=== PATIENT | male | born 1940 | race Caucasian/White ===

== ENCOUNTER 2020-02-10 10:17 | Outpatient (REF) | payer OTHER, SELFPAY ==
--- NOTE | 2020-02-10 | US_ITS ---
EXAMINATION: US THYROID CLINICAL INFORMATION: Nontoxic multinodular goiter. COMPARISON: Thyroid ultrasound 01/10/2018 and 12/07/2016. Ultrasound-guided thyroid biopsy 09/11/2014. TECHNIQUE: Linear transducer walter-scale and color Doppler examination with attention to the region of the thyroid. Technically difficult study secondary to body habitus. FINDINGS: SIZE: Measurements of the thyroid lobes and nodules are given in sagittal, anteroposterior and transverse dimensions respectively. Right Thyroid Lobe: 4.3 x 2.3 x 2.3 cm, volume 11.7 mL. Previously 4.5 x 1.8 x 2.0 cm, volume 8.5 mL. Parenchyma: The gland echotexture is heterogeneous. Thyroid vascularity is normal. Left Thyroid Lobe: 4.1 x 1.6 x 1.8 cm, volume 6.3 mL. Previously 3.9 x 1.5 x 1.7 cm, volume 5.2 mL. Parenchyma: The gland echotexture is heterogeneous. Thyroid vascularity is normal. Isthmus: 0.7 cm in maximum AP dimension. Previously 0.5 cm. RIGHT THYROID LOBE: There are 4 nodules seen. 1. Location: Upper pole. Size: 0.5 x 0.3 x 0.5 cm. Previous: 0.5 x 0.3 x 0.4 cm. Nodule characteristics: Hypoechoic, smoothly marginated with no intranodular flow, simple cysts. 2. Location: Mid pole. Size: 0.5 x 0.3 x 0.4 cm. Previous: 0.3 x 0.2 x 0.2 cm. Nodule characteristics: Hypoechoic, smoothly marginated with no intranodular flow, likely simple cyst. 3. Location: Mid pole. Size: 0.4 x 0.3 x 0.4 cm. Previous: 0.3 x 0.2 x 0.3 cm. Nodule characteristics: Hypoechoic, smoothly marginated with no intranodular flow, likely simple cyst. 4. Location: Lower pole. Size: 0.3 x 0.2 x 0.3 cm. Previous: Not seen, new. Nodule characteristics: Hypoechoic, smoothly marginated with no intranodular flow, likely simple cyst heterogenous, smoothly marginated with no intranodular flow. ISTHMUS: No nodules. LEFT THYROID LOBE: There are 2 nodules seen. 1. Location: Mid pole. Size: 0.8 x 0.7 x 0.9 cm. Previous: 0.9 x 0.7 x 0.6 cm. Nodule characteristics: Heterogeneous, smoothly marginated with no intranodular flow. 2. Location: Mid pole. Size: 0.5 x 0.5 x 0.6 cm. Previous: 0.4 x 0.3 x 0.4 cm. Nodule characteristics: Hypoechoic, smoothly marginated with no intranodular flow, likely complex cyst. NODES: No lymphadenopathy is seen in the tissue surrounding the thyroid gland. US/US thyroid IMPRESSION: Bilateral subcentimeter thyroid nodules, most of the right thyroid nodules are simple cyst. There is a complex cyst in the midpole left lobe.
== END 2020-02-10 10:18 | disposition home or self-care (01) ==
LOC: HO.US 10:17
PROVIDERS: Visit Provider Internal Medicine Endocrinology, Diabetes & Metabolism
DX: E04.2 Nontoxic multinodular goiter (principal)
CPT/HCPCS: 76536

== ENCOUNTER → 2020-05-11 07:45 | Outpatient (BNVA) | payer OTHER, SELFPAY | PROVIDERS: PCP Family Medicine; Referring Provider Family Medicine; Visit Provider Internal Medicine Endocrinology, Diabetes & Metabolism ==

== ENCOUNTER 2020-06-15 09:32 | Outpatient (REF) | payer OTHER, SELFPAY ==
--- NOTE | ~2020-06-15 | FL_ITS ---
EXAMINATION: FL UPPER GI SERIES AND BARIUM SWALLOW CLINICAL INFORMATION: Epigastric and right upper quadrant pain GERD and new dysphagia. COMPARISON: Upper GI exam 01/23/2017. TECHNIQUE: Routine upper GI air-contrast study was performed. In addition barium swallow was performed with thick barium and barium-coated turkey in upright view. FINDINGS: Following oral administration of thick barium and effervescent granules, there is normal passage of bolus from the oral cavity through the pharynx and esophagus and into the stomach. A prominent cricoesophageal sphincter is seen but no obstruction or distention of cervical esophagus. The esophagus is more prominent on oral administration of solid food such as barium-coated turkey. On placing patient supine and prone lying, there is a small sliding hiatal hernia but no gastroesophageal reflux seen at this time. The mucosal pattern of the stomach, duodenal bulb and the CBD is normal. The course, caliber of the stomach and the duodenum are normal. FLUOROSCOPY TIME: 2.3 minutes. DOSE AREA PRODUCT: 42.802 uGy-m2 (microgray-meter squared). FL/FL upper GI series IMPRESSION: Prominent cricoesophageal sphincter, more apparent during administration of solid food such as barium-coated turkey in upright view. It was noted on the previous exam. Small sliding hiatal hernia with no gastroesophageal reflux seen at this time. There is no esophageal obstruction seen. Gastroesophageal reflux was seen on the previous exam 01/23/2017.
== END 2020-06-15 09:33 | disposition home or self-care (01) ==
LOC: HO.XRAY 09:32
PROVIDERS: PCP Family Medicine; Visit Provider Family Medicine
DX: K21.9 Gastro-esophageal reflux disease without esophagitis (principal); R13.10 Dysphagia, unspecified
CPT/HCPCS: 74240

== ENCOUNTER 2021-09-17 08:52 | Outpatient (REF) | payer OTHER, SELFPAY ==
--- NOTE | ~2021-09-17 | US_ITS ---
EXAMINATION: US THYROID CLINICAL INFORMATION: Nontoxic multinodular goiter. COMPARISON: Thyroid ultrasound 02/10/2020 and 01/10/2018. Ultrasound-guided thyroid biopsy 09/11/2014. TECHNIQUE: Linear transducer grayscale and color Doppler examination with attention to the region of the thyroid. Technically difficult study secondary to low lying location of thyroid. FINDINGS: SIZE: Measurements of the thyroid lobes and nodules are given in sagittal, anteroposterior and transverse dimensions respectively. Right Thyroid Lobe: 3.8 x 2.4 x 1.9 cm, volume 9.1 mL. Previously 4.3 x 2.3 x 2.3 cm, volume 11.7 mL. Parenchyma: The gland echotexture is heterogeneous. Thyroid vascularity is normal. Left Thyroid Lobe: 4.3 x 2.8 x 1.6 cm, volume 9.7 mL. Previously 4.1 x 1.6 x 1.8 cm, volume 6.3 mL. Parenchyma: The gland echotexture is heterogeneous. Thyroid vascularity is normal. Isthmus: 0.6 cm in maximum AP dimension. Previously 0.7 cm. Estimated total number of nodules greater than or equal to 1 cm: 3. [employer] nodules are described as follows: 1. Location: Right lower pole. Size: 0.9 x 1.0 x 0.9 cm, volume 0.43 mL. Previously: Not documented. Nodule characteristics: Composition: Solid (2). Echogenicity: Hypoechoic (2). Shape: Taller than wide (3). Margins: Smooth (0). Echogenic Foci: None (0). ACR TI-RADS total points: 7 ACR TI-RADS category: 5 2. Location: Right upper pole. Size: 0.6 x 0.4 x 0.4 cm, volume 0.04 mL. Previously: 0.5 x 0.4 x 0.5 cm, volume 0.05 mL. Nodule characteristics: Composition: Cystic(0). ACR TI-RADS total points: 0 ACR TI-RADS category: 1 Significant change in size (>/= 20% in 2 dimensions and minimal increase of 2 mm or 50% or greater increase in volume): Change in features: Change in ACR TI-RADS risk category: 3. Location: Left mid pole. Size: 0.9 x 0.8 x 1.0 cm, volume 0.38 mL. Previously: 0.9 x 0.7 x 0.8 cm, volume 0.30 mL. Nodule characteristics: Composition: Mixed cystic and solid (1). Echogenicity: Hypoechoic (2). Shape: Not taller than wide (0). Margins: Smooth (0). Echogenic Foci: Punctate echogenic foci (3). ACR TI-RADS total points: 6 ACR TI-RADS category: 4 Significant change in size (>/= 20% in 2 dimensions and minimal increase of 2 mm or 50% or greater increase in volume): Change in features: Change in ACR TI-RADS risk category: 4. Location: Left mid pole. Size: 1.0 x 0.9 x 0.8 cm, volume 0.40 mL. Previously: 0.5 x 0.5 x 0.6 cm, volume 0.08 mL. Nodule characteristics: Composition: Mixed cystic and solid (1). Echogenicity: Hypoechoic (2). Shape: Taller than wide (3). Margins: Smooth (0). Echogenic Foci: None (0). ACR TI-RADS total points: 6 ACR TI-RADS category: 4 Significant change in size (>/= 20% in 2 dimensions and minimal increase of 2 mm or 50% or greater increase in volume): Change in features: Change in ACR TI-RADS risk category: NODES: No lymphadenopathy is seen in the tissue surrounding the thyroid gland. US/US thyroid IMPRESSION: Limited exam due to body habitus/low position of the thyroid gland. Newly appreciated right inferior nodule. There is question of increase in size in the 2 nodules in the left mid lobe. ACR TI-RADS RECOMMENDATION REFERENCE: Ultrasound-guided fine-needle aspiration, followup ultrasound, no further follow up. * TR1 (0 point) and TR 2 (2 points): No FNA or follow up * TR3 (3 points): FNA if more than or equal to 2.5 cm in maximum dimension, followup ultrasound in 1, 3 and 5 years if 1.5 to 2.4 cm in maximum dimension. * TR4 (4-6 points): FNA if more than or equal to 1.5 cm in maximum dimension, followup ultrasound in 1, 2, 3 and 5 years if 1 to 1.4 cm in maximum dimension. * TR5 (more than or equal to 7 points): FNA if more than or equal to 1 cm in maximum dimension, followup ultrasound every year for 5 years if 0.5 to 0.9 cm in maximum dimension. * TR3, TR4 or TR5 nodules that are below the size threshold for follow up receive no follow up.
== END 2021-09-17 08:53 | disposition home or self-care (01) ==
LOC: HO.HMGCX 08:52
PROVIDERS: PCP Family Medicine; Visit Provider Internal Medicine Endocrinology, Diabetes & Metabolism
DX: E04.2 Nontoxic multinodular goiter (principal); E11.9 Type 2 diabetes mellitus without complications
CPT/HCPCS: 76536

== ENCOUNTER → 2021-09-24 13:47 | Outpatient (BNVA) | payer OTHER, SELFPAY | PROVIDERS: PCP Family Medicine; Visit Provider Internal Medicine Endocrinology, Diabetes & Metabolism | DX: E11.9 Type 2 diabetes mellitus without complications (principal); E04.2 Nontoxic multinodular goiter | CPT/HCPCS: 82947 ==

== ENCOUNTER 2023-02-07 15:19 | Outpatient (REF) | payer OTHER, SELFPAY ==
--- NOTE | ~2023-02-07 | XR_ITS ---
EXAMINATION: XR CERVICAL SPINE CLINICAL INFORMATION: Right arm pain COMPARISON: Previous x-ray September 2015 TECHNIQUE: 6 views of the cervical spine, inclusive of flexion and extension views, were obtained. FINDINGS: Bone alignment is normal. No fracture or dislocation. Multilevel degenerative spondylosis and degenerative disc disease from C4-C5 to C7-T1. Bilateral neuroforaminal narrowing are osteophyte from C3 C4to C6 C7. Prevertebral soft tissues are normal. Posterior soft tissue calcifications or ossifications suggestive of old soft tissue trauma. XR/XR cervical spine 5V IMPRESSION: Multilevel degenerative changes.
== END 2023-02-07 15:20 | disposition home or self-care (01) ==
LOC: HO.XRAY 15:19
PROVIDERS: PCP Family Medicine; Visit Provider Family Medicine
DX: M25.511 Pain in right shoulder (principal); R20.0 Anesthesia of skin
CPT/HCPCS: 72050

== ENCOUNTER 2023-03-16 07:46 | Outpatient (REF) | payer OTHER, SELFPAY ==
--- NOTE | 2023-03-16 07:49 | EMG_ITS ---
Right median, ulnar motor, and sensory studies were performed. Right radial sensory studies were performed and paraspinal muscles were tested with a needle. IMPRESSION: 1. 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 2. Moderately severe right median neuropathy across carpal tunnel. 3. 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 MD CAESAR Gee/JORY / [id number]
== END 2023-03-16 07:47 | disposition home or self-care (01) ==
LOC: HO.NEURO 07:46
PROVIDERS: PCP Family Medicine; Visit Provider Family Medicine
DX: G56.21 Lesion of ulnar nerve, right upper limb (principal)
CPT/HCPCS: 95886; 95909

== ENCOUNTER 2023-07-11 09:05 | Outpatient (REF) | payer OTHER, SELFPAY ==
--- NOTE | ~2023-07-11 | XR_ITS ---
EXAMINATION: XR HAND, LEFT CLINICAL INFORMATION: Pain in left hand, tip of 4th digit. COMPARISON: None available. TECHNIQUE: PA, lateral, and oblique views of the left hand. FINDINGS: Bones are diffusely demineralized. Moderate degenerative changes in the 1st carpometacarpal joint with joint space narrowing and hypertrophic change. Surgical clips along the distal radius. Ulnar minus variance with degenerative changes at the radioulnar distal articulation. No displaced fracture of the 4th digit appreciated. Moderate degenerative changes with hypertrophic change at the PIP and DIP joints of the 4th digit as well as in multiple additional IP joints. There is a 4 mm, well-marginated, cystic lucency at the base of the middle phalanx of the 4th digit. XR/XR hand LT min 3V IMPRESSION: 1. Moderate degenerative changes in the 1st carpometacarpal joint. 2. Moderate degenerative changes in the IP joints of the 4th digit. 3. No displaced fracture of the 4th digit appreciated. Recommend follow up imaging in 10-14 days if fracture is suspected.
== END 2023-07-11 09:06 | disposition home or self-care (01) ==
LOC: HO.HOSX 09:05
PROVIDERS: Visit Provider Orthopaedic Surgery
DX: M79.642 Pain in left hand (principal); M65.342 Trigger finger, left ring finger; R20.0 Anesthesia of skin; R20.2 Paresthesia of skin; M25.642 Stiffness of left hand, not elsewhere classified; E11.42 Type 2 diabetes mellitus with diabetic polyneuropathy
CPT/HCPCS: 20550; 73130; J1100

== ENCOUNTER 2023-07-11 14:02 | Outpatient (AMB) | payer OTHER, SELFPAY ==
--- NOTE | 2023-07-11 14:13 | MHC.OFFVIS ---
Intake Visit Reasons: New Pt - left ring finger pain Intake Note: Vance 83 yr old right hand dominant male presents today for a new patient visit for his left ring finger pain. States that he notices his finger not being able to bend to make a fist. He reports having pain that started about 2 months ago and has worsen. 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 Having numbness for about 2 months. Patient finds relief when taking Alive. Allergies No Known Allergies [No Known Allergies*] Allergy (Verified 07/11/23 14:18) HPI HPI New Pt - left ring finger pain: Details: Vance is an 83 year old right hand dominant Diabetic man who presents with complaints of left ring finger pain & stiffness. He complains of pain in his ring finger, and says he is unable to bend his finger to make a fist. He says ~2 months ago he was experiencing locking of his ring finger when making a fist, and now he has stiffness as he tried to avoid that. He also complains of ~2 months intermittent numbness in his bilateral thumb, index, and middle fingers. Symptoms intermittent, but daily, worse at night. He says he has numbness in his right middle finger today. [facility] Medical History (Updated 07/11/23 @ 15:10 by Robbie Velasco) Non-toxic multinodular goiter Dyslipidemia Hypertension Diabetic polyneuropathy associated with type 2 diabetes mellitus Controlled type 2 diabetes mellitus Surgical History History of back surgery History of esophagogastroduodenoscopy (EGD) Hx of colonoscopy Hx of hernia repair Family History Father No problems noted. Mother Gastric cancer Social History Alcohol intake: current Alcohol intake frequency: holidays/special occasions only Patient Tobacco Use Status: Never used Tobacco Review of Systems Const All systems reviewed & are unremarkable except as noted in HPI and below Physical Exam Const General: cooperative, healthy appearing and no acute distress Orientation/consciousness: patient oriented x3 HEENT Head: Yes normocephalic and Yes atraumatic Eyes EOM: EOMs intact bilaterally Resp Effort & Inspection: normal respiratory effort and able to speak in complete sentences Cardio Jugular venous distension: no JVD Skin General skin exam: turgor normal Rashes: no rashes Neuro General: patient oriented x3 Extrem Other: Evaluation of Left Upper Extremity: The patient is alert, oriented, and in no acute distress Neuro: Median, Ulnar, Radial nerves motor and sensory intact and sensation is normal to the tips of all digits bilaterally, except for the right middle finger which has decreased sensation today in clinic. Vascular: Cap refill brisk ROM: With encouragement, and after working on some exercises to improve finger range of motion, he can make a fist and extend all his digits Tender over the ring finger a1 alfredo Visible & palpable locking and catching of the ring finger Skin: No lacerations or abrasions. General: No Ecchymosis. No Erythema or evidence of infection. Radiographs: 3 views of the left hand were taken and viewed by me today in clinic. They show no fractures or dislocations. 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 Psych Appearance: grossly normal Affect: normal affect Attitude: cooperative Office Procedures Fracture Care Details: No fracture, injection Fracture Billing Code: Fracture Billing Code Assessment & Plan Assessment & Plan (1) Trigger finger, left ring finger: Code(s): M65.342 - Trigger finger, left ring finger Category: Medical (2) Numbness and tingling in left hand: Code(s): R20.0 - Anesthesia of skin; R20.2 - Paresthesia of skin Category: Medical (3) Numbness and tingling in right hand: Code(s): R20.0 - Anesthesia of skin; R20.2 - Paresthesia of skin Category: Medical (4) Stiffness of finger joint of left hand: Code(s): M25.642 - Stiffness of left hand, not elsewhere classified Category: Medical (5) Diabetic polyneuropathy associated with type 2 diabetes mellitus: Code(s): E11.42 - Type 2 diabetes mellitus with diabetic polyneuropathy Category: Medical (6) Controlled type 2 diabetes mellitus: Code(s): E11.9 - Type 2 diabetes mellitus without complications Category: Medical Plan Assessment & Plan: 1. Left ring finger trigger finger 2. Left hand stiffness I educated him about these conditions I discussed operative and non-operative treatment options The patient would like to proceed with an injection We went over some range of motion exercises today in clinic. I discussed activity modification, he should work on ROM exercises at home to improve his stiffness Injection #1: The risks and benefits of a steroid injection including but not limited to risk of damage to blood vessels, nerves, tendons, infection, skin bleaching, failure to improve symptoms, increased pain, and possible need for further injections or other intervention were discussed with the patient and the patient wishes to proceed with the steroid injection. Once consent was obtained, I sterilely prepped the area over the A1 alfredo of the flexor tendon sheath of the Left ring finger. I then injected the flexor tendon sheath with a combination of 1 mL of dexamethasone (4mg/ml), and 1% lidocaine. The patient tolerated the procedure well with no complications. If the patient continues to have locking and catching 4-6 weeks following this injection, they may call to schedule appointment to discuss alternative treatment options 3. Bilateral hand numbness In the median nerve distribution Symptoms intermittent, but daily, worse at night I ordered a NCS to assess for peripheral nerve compression He has a Hx of diabetic polyneuropathy He will follow up when completed for review Scribed for Sabrina Silva MD by Robbie Velasco, medical billing and coding specialist, on 07/11/23 at 2:45 PM, EST. Orders: Orders XR hand LT min 3V Today M79.642 - Pain in left hand Coding Level of Care Code New Pt Level 3 (14275) Diagnoses Trigger finger, left ring finger M65.342 Numbness and tingling in left hand R20.0; R20.2 Numbness and tingling in right hand R20.0; R20.2 Stiffness of finger joint of left hand M25.642 Diabetic polyneuropathy associated with type 2 diabetes mellitus E11.42 Controlled type 2 diabetes mellitus E11.9 CPT Codes Fracture Care - Fracture Billing Code: Fracture Billing Code ([id number])
== END 2023-07-11 15:11 | disposition home or self-care (01) ==
PROVIDERS: PCP Family Medicine; Visit Provider Orthopaedic Surgery
DX: M65.342 Trigger finger, left ring finger (principal); R20.0 Anesthesia of skin; R20.2 Paresthesia of skin; M25.642 Stiffness of left hand, not elsewhere classified; E11.42 Type 2 diabetes mellitus with diabetic polyneuropathy
CPT/HCPCS: 20550; 99203

== ENCOUNTER 2023-12-07 09:23 | Outpatient (REF) | payer OTHER, SELFPAY ==
--- NOTE | ~2023-12-07 | US_ITS ---
EXAMINATION: US THYROID CLINICAL INFORMATION: Nontoxic multinodular goiter. COMPARISON: Thyroid ultrasound 09/17/2021 and 02/10/2020. Ultrasound-guided thyroid biopsy 09/11/2014. TECHNIQUE: Linear transducer grayscale and color Doppler examination with attention to the region of the thyroid. FINDINGS: Submitted for interpretation on January 19, 2024. SIZE: Measurements of the thyroid lobes and nodules are given in sagittal, anteroposterior and transverse dimensions respectively. Right Thyroid Lobe: 5 x 3 x 2 cm, volume 12 mL. Previously 4 x 2 x 2 cm, volume 9 mL. Parenchyma: The gland echotexture is heterogeneous. Thyroid vascularity is normal. Left Thyroid Lobe: 4 x 2 x 2 cm, volume 9.0 mL. Previously 4 x 3 x 2 cm, volume 10 mL. Parenchyma: The gland echotexture is heterogeneous. Thyroid vascularity is normal. Isthmus: 0.7 cm in maximum AP dimension. Previously 0.6 cm. Estimated total number of nodules greater than or equal to 1 cm: 3. [employer] nodules are described as follows: 1. Location: Right upper pole. Size: 0.4 x 0.4 x 0.4 cm, volume 0.03 mL. Previously: 0.6 x 0.4 x 0.4 cm, volume 0.04 mL. Nodule characteristics: Composition: Cystic(0). ACR TI-RADS total points: 0 Previous: 0 ACR TI-RADS category: 1 Previous: 1 Significant change in size (>/= 20% in 2 dimensions and minimal increase of 2 mm or 50% or greater increase in volume): Change in features: Change in ACR TI-RADS risk category: 2. Location: Right lower pole. Size: 1.2 x 1.1 x 1.2 cm, volume 0.79 mL. Previously: 0.9 x 1.0 x 0.9 cm, volume 0.43 mL. Nodule characteristics: Composition: Solid (2). Echogenicity: Hypoechoic (2). Shape: Not taller than wide (0). Margins: Ill-defined (0). Echogenic Foci: None (0). ACR TI-RADS total points: 4 Previous: 7 ACR TI-RADS category: 4 Previous: 5 3. Location: Left upper pole. Size: 1.2 x 0.8 x 1.1 cm, volume 0.53 mL. Previously: 0.9 x 0.8 x 1.0 cm, volume 0.38 mL. Nodule characteristics: Composition: Mixed cystic and solid (1). Echogenicity: Hypoechoic (2). Shape: Not taller than wide (0). Margins: Smooth (0). Echogenic Foci: None (0). ACR TI-RADS total points: 3 Previous: 6 ACR TI-RADS category: 3 Previous: 4 4. Location: Left lower pole. Size: 1.3 x 0.9 x 0.9 cm, volume 0.58 mL. Previously: 1.0 x 0.9 x 0.8 cm, volume 0.40 mL. Nodule characteristics: Composition: Mixed cystic and solid (1). Echogenicity: Hypoechoic (2). Shape: Not taller than wide (0). Margins: Ill-defined (0). Echogenic Foci: None (0). ACR TI-RADS total points: 3 Previous: 6 ACR TI-RADS category: 3 Previous: 4 NODES: No lymphadenopathy is seen in the tissue surrounding the thyroid gland. US/US thyroid IMPRESSION: TI-RADS 3 ACR TI-RADS RECOMMENDATION REFERENCE: Ultrasound-guided fine-needle aspiration, follow up ultrasound, no further followup. * TR1 (0 point) and TR2 (2 points): No FNA or followup * TR3 (3 points): FNA if more than or equal to 2.5 cm in maximum dimension, follow up ultrasound in 1, 3 and 5 years if 1.5 to 2.4 cm in maximum dimension. * TR4 (4-6 points): FNA if more than or equal to 1.5 cm in maximum dimension, follow up ultrasound in 1, 2, 3 and 5 years if 1 to 1.4 cm in maximum dimension. * TR5 (more than or equal to 7 points): FNA if more than or equal to 1 cm in maximum dimension, follow up ultrasound every year for 5 years if 0.5 to 0.9 cm in maximum dimension. * TR3, TR4 or TR5 nodules that are below the size threshold for follow up receive no followup. Electronically signed by: Robbi Moore MD 01/19/2024 09:02 AM [facility]
== END 2023-12-07 09:24 | disposition home or self-care (01) ==
LOC: HO.HMGCX 09:23
PROVIDERS: PCP Family Medicine; Visit Provider Family Medicine
DX: E04.2 Nontoxic multinodular goiter (principal)
CPT/HCPCS: 76536

== ENCOUNTER → 2023-12-07 09:26 | Outpatient (BNV) | payer OTHER, SELFPAY | PROVIDERS: PCP Family Medicine; Visit Provider Radiology Diagnostic Radiology | DX: E04.2 Nontoxic multinodular goiter (principal) | CPT/HCPCS: 76536 ==

== ENCOUNTER 2024-01-18 10:11 | Outpatient (REF) | payer OTHER, SELFPAY ==
[2024-01-18 12:58] LABS: MANUAL DIFF FLAG NO
[2024-01-18 13:06] LABS: Basophils Absolute Auto 0.1 X10*3/uL (0.0-0.2); Basophils Percent Auto 0.6 % (0-2); Eosinophils Absolute Auto 0.3 X10*3/uL (0.0-0.4); Hemoglobin 13.7 g/dl (14.0-18.0); Imm Gran Abs Auto 0.03 X10*3/uL (0.00-0.03); Imm Gran Pct Auto 0.4 % (0.0-0.4); Lymphocytes Absolute Auto 1.2 X10*3/uL (1.2-4.9); Lymphocytes Percent Auto 15.3 % (20-40); Mean Corpuscular HGB Conc 33.4 g/dl (31.0-36.0); Mean Corpuscular Volume 89.7 fL (80.0-98.0); Mean Platelet Volume 10.7 fL (9.4-12.4); Monocytes Absolute Auto 0.6 X10*3/uL (0.1-1.2); Monocytes Percent Auto 7.1 % (2-11); Neutrophils Absolute Auto 5.8 x10*3/uL (2.0-8.3); Neutrophils Percent Auto 72.6 % (45-73); Platelet Count 270 X10*3/uL (160-400); Red Blood Count 4.57 X10*6/uL (4.60-5.80); Red Cell Distribution Width 13.5 % (11.0-16.0)
[2024-01-18 13:25] LABS: Alanine Aminotransferase 28 U/L (0-40); Anion Gap 10 (12-20); Aspartate Amino Transferase 26 U/L (5-37); Blood Urea Nitrogen 22 mg/dL (9-16); Carbon Dioxide 29 mmol/L (22-29); Chloride 105 mmol/L (96-108); Estimated Glomerular Filt Rate 49; Potassium 4.1 mmol/L (3.3-5.1); Sodium 140 mmol/L (135-145)
[2024-01-18 13:41] LABS: Free T4 (Free Thyroxine) 0.96 ng/dL (0.71-1.85)
== END 2024-01-18 10:12 | disposition home or self-care (01) ==
LOC: HO.10HDL 10:11
PROVIDERS: Visit Provider Family Medicine
DX: I10 Essential (primary) hypertension (principal); E78.00 Pure hypercholesterolemia, unspecified; Z79.899 Other long term (current) drug therapy
CPT/HCPCS: 36415; 80051; 82550; 82565; 84439; 84443; 84450; 84460; 84520; 85025

== ENCOUNTER 2024-05-27 10:14 | Outpatient (REF) | payer OTHER, SELFPAY ==
--- NOTE | ~2024-05-27 | XR_ITS ---
EXAMINATION: XR CERVICAL SPINE CLINICAL INFORMATION: RIGHT HAND PAIN,SWELLING COMPARISON: None available. TECHNIQUE: 6 views of the cervical spine, inclusive of flexion and extension views, were obtained. FINDINGS: There is mild straightening of cervical lordosis. The vertebral heights, alignment are normal. There is mild loss of C5-6, C6-7 and C7-T1 disc heights with mild ventral spondylosis C4-5 through C6 testis 7 disc levels. There is mild narrowing of right C4-5 neural foramina from uncovertebral hypertrophic changes. Rest of the bilateral foramina are widely patent. No fracture or dislocation seen. No lytic process. XR/XR cervical spine 5V IMPRESSION: Unremarkable mild cysts straightening of cervical lordosis likely spasm. Degenerative ventral spondylosis and mild degenerative disc changes as described above. Mild narrowing of right C4-5 neural foramina from uncovertebral hypertrophic changes . Electronically signed by: Jaime Goldman MD 05/27/2024 10:46 AM EDT
--- OUTSIDE RECORDS SUMMARY | 2024-05-27 11:39 | XMS_ITS | Patient Health Record ---
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 Name Role Phone Sharath WARNER, Cash Primary Care Provider Unavailab Jordan Aly Unavailable [phone] Allergies No Known Allergies Results Component Value Reference Range Notes HEMOGLOBIN A1C (GLYCOHEMOGLO BIN) Reviewed date:03/25/2024 09:37:32 AM Interpretation: Performing Lab: Notes/Report: HEMOGLOBIN A1C % (HH) 7.2 Reason For Referral No Information Medications Medication SIG (Take, Route, Frequency, Duration) Notes Start Date End Date Status Extra Depth Orthopedic Shoes, (1) Pair With (3) Pair Custom Heat Molded Multidensity Innersoles Dx: NIDDM/PVD(E11.51), Hammertoe Foot Deformity(M20.41,M20.42), Preulcerative Skin Lesion(s)(L85.1) Wear Daily for 365 days 03/25/2024 Active amLODIPine Besylate 5 MG 1 tablet Orally Once a day Active Aspir-81 Active metFORMIN HCl 1000 MG 1 tablet with a me al Orally Once a day Active Atorvastatin Calcium 80 MG 1 tablet Orally Once a day Active Omeprazole 20 MG 1 capsule 1/2 to 1 h our before morning meal Orally Once a day Active Probiotic Active Centrum Silver Activ e Magnesium Citrate Ac tive Social History Tobacco Use: Social History Observation Description Date Details (start date - stop date) Never Smoker NA - NA Tobacco use other than smoking: Question Answer Notes Are you an other tobacco user? No Tobacco Control (Standard) Question Answer Notes Tobacco use: Nonsmoker Additional Findings: Tobacco non-user Current no nsmoker AUDIT-C (Standard) Question Answer Notes Did you have a drink contain ing alcohol in the past year? Yes How often did you have six o r more drinks on one occasion in the past year? Declined to specify (0 point) How many drinks did you have on a typical day when you were drinking in the past year? Declined to specify (0 point) How often did you have a dri nk containing alcohol in the past year? 2 to 4 times a month (2 points) Points 2 Interpretation Negative Problems Problem Type SNOMED Code ICD Code Onset Dates Problem Status W/U Status Risk Notes Problem Acquired hammer toe of right foot (0063537029931 105) Other hammer toe(s) (acquired), right foot (M20.41) Active confirmed Problem Acquired hammer toe of left foot (8483294923005 103) Other hammer toe(s) (acquired), left foot (M20.42) Active confirmed Problem Type 2 diabetes mellitus with peripheral angiopathy (260152903) Type 2 diabetes mellitus with diabetic peripheral angiopathy without gangrene (E11.51) Active confirmed Q7(A), Q8(2B), Q9(1B,2C) Vital Signs Blood pressure diastolic 71 mm Hg 03/25/2024 Blood pressure systolic 129 mm Hg 03/25/2024 Weight 190 lbs 03/25/2024 Procedures Procedure Date Ordered Date Performed Result Body Sit e 00014-ESRYKTZ NAIL, 1-5 03/25/2024 N/A 69672-YXPN SKIN LESIONS, 2 TO 4 03/25/2024 N/A [id number] DYSTROPHIC NAILS ANY # 03/25/2024 N/A Encounters Encounter Location Date Provider Diagnosis [facility] [address] [address] 03/25/2024 Jordan Cassidy Type 2 diabetes mellitus with diabetic peripheral angiopathy without gangrene E11.51 ; Tinea unguium B35.1 ; Pain in right toe(s) M79.674 ; Pain in left toe(s) M79.675 ; Other hammer toe(s) (acquired), left foot M20.42 and Other hammer toe(s) (acquired), right foot M20.41 Assessments Encounter Date Diagnosis (ICD Code) Assessment Notes Treatment Notes Treatment Clinical Notes Section Notes 03/25/2024 Type 2 diabetes mellitus with diabetic peripheral angiopathy without gangrene (ICD-10 - E11.51) Q7(A), Q8(2B), Q9(1B,2C) 03/25/2024 Tinea unguium (ICD-10 - B35.1) 03/25/2024 Pain in right toe(s) (ICD-10 - M79.674) 03/25/2024 Pain in left toe(s) (ICD-10 - M79.675) 03/25/2024 Other hammer toe(s) (acquired), left foot (ICD-10 - M20.42) 03/25/2024 Other hammer toe(s) (acquired), right foot (ICD-10 - M20.41) Patient Educated with: DIABETIC FOOT CARE INSTRUCTIONS.p df (DIABETIC FOOT CARE INSTRUCTIONS.p df) Plan Of Treatment Pending Test Test Name Order Date [id number] NAIL, 1-5 03/25/2024 33249-[id number] SKIN LESIONS, 2 TO 4 03/25/19 25 [id number] DYSTROPHIC NAILS ANY # Next Appt Details Provider Name:Jordan Rome Cassidy , 06/05/2024 10:30:00 AM, [address] [facility], [address], [place], [address], Insurance Providers Payer Name Payer Address Payer Phone Subscriber Number Group Number Insured Name Patient Relationship to Insured Coverage Start Date Coverage End Date [facility] [address] [place] [address] [phone] [id number] Vance Flowers Self - patient is the insured 4 Medical (General) History Medical History History ICD Code Diabetic High Blood Pressure Hypercholesterolemia Reflux
--- OUTSIDE RECORDS SUMMARY | 2024-05-27 11:39 | XMS_ITS ---
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 Name Role Phone Sharath WARNER, Cash Primary Care Provider Unavailab Jordan Aly Unavailable [phone] Allergies No Known Allergies REASON FOR VISIT At Risk Footcare, Painful Nail(s) aggravated by shoes and causing difficulty standing/walking., ToeIrritation Medications Medication SIG (Take, Route, Frequency, Duration) Notes Start Date End Date Status amLODIPine Besylate 5 MG 1 tablet Orally Once a day Active Aspir-81 Active Probiotic Active Centrum Silver Activ e Magnesium Citrate Ac tive Extra Depth Orthopedic Shoes, (1) Pair With (3) Pair Custom Heat Molded Multidensity Innersoles Dx: NIDDM/PVD(E11.51), Hammertoe Foot Deformity(M20.41,M20.42), Preulcerative Skin Lesion(s)(L85.1) Wear Daily for 365 days 03/25/2024 Active metFORMIN HCl 1000 MG 1 tablet with a me al Orally Once a day Active Atorvastatin Calcium 80 MG 1 tablet Orally Once a day Active Omeprazole 20 MG 1 capsule 1/2 to 1 h our before morning meal Orally Once a day Active Social History Tobacco Use: Social History Observation [...] Problem Status W/U Status Risk Notes Problem Type 2 diabetes mellitus with peripheral angiopathy (803762953) Type 2 diabetes mellitus with diabetic peripheral angiopathy without gangrene (E11.51) Active confirmed Q7(A), Q8(2B), Q9(1B,2C) Problem Acquired hammer toe of right foot (2580207325146 105) Other hammer toe(s) (acquired), right foot (M20.41) Active confirmed Problem Acquired hammer toe of left foot (3755027465712 103) Other hammer toe(s) (acquired), left foot (M20.42) Active confirmed Vital Signs Blood pressure systolic 129 mm Hg 03/25/19 25 Blood pressure diastolic 71 mm Hg 025 Weight 190 lbs 03/25/2024 Procedures Procedure Date Ordered Date Performed Result Body Sit e 58494-PJFKXWQ NAIL, 1-5 03/25/2024 N/A 75897-NFIE SKIN LESIONS, 2 TO 4 03/25/2024 N/A P9069-XOYSHFAU DYSTROPHIC NAILS ANY # 03/25/2024 N/A Encounters Encounter Location Date Provider Diagnosis [facility] [address] [address] 03/25/2024 Jordan Cassidy Type 2 diabetes mellitus [...] FOOT CARE INSTRUCTIONS.p df) Plan Of Treatment Medication Medication Name Sig Start Date Stop Date Notes Extra Depth Orthopedic Shoes , (1) Pair With (3) Pair Custom Heat Molded Multidensity Innersoles Dx: NIDDM/PVD(E11.51), Hammertoe Foot Deformity(M20.41,M20.42), Preulcerative Skin Lesion(s)(L85.1) Wear Daily for 365 days 03/25/2024 Treatment Notes Assessment Notes Other hammer toe(s) (acquired), right fo ot Patient Educated with: DIABETIC FOOT CARE INSTRUCTIONS.pdf (DIABETIC FOOT CARE INSTRUCTIONS.pdf) Pending Test Test Name Order Date 65996-GPUTUFG NAIL, 1-5 03/25/2024 61519-MXFP SKIN LESIONS, 2 TO 4 03/25/19 25 P8463-RHYJWUMM DYSTROPHIC NAILS ANY # Next Appt Details Follow Up: prn, Reason: Provider Name:Jordan Cassidy , 06/05/2024 10:30:00 AM, [address], [address], [place], [address], Procedure Notes * Category Sub-Category Detail Notes Keratoma Treatment Parring or Cutting o f Benign Hyperkeratotic Lesion(s) (-56) 2-4 Lesions - Due to the at risk nature of the patients medical condition as documented in the exam findings, performance of this keratoderma treatment is medically necessary as its management by an unskilled/untrained nonprofessional would put this patients foot and overall health at risk. Therefore, the benign hyperkeratotic lesions, ( 3 ) in total, locations as stated and described in the exam ( SUB MTH (s), 5, Right, Plantar Heel(s), B/L ), were pared, and/or cut utilizing a sterile 15 blade, tissue nippers, and/or power dremel instrumentation by the physician of record - 37957, Q8 Debride Nails 1-5 Procedure: Due to the cli nical pathology outlined in the exam findings, performance of this nail treatment is medically necessary as its management by an unskilled/untrained nonprofessional would put this patients foot and overall health at risk. Therefore, debridement to affected nail(s), as described in exam ( TA, T1, T4, T5 ), was performed exclusively by the physician of record to reduce/remove overall nail length, girth, thickness, subungual debris, and necrotic tissue, by manual and/or electrical means through the use of a nail nipper and/or dremel stylegrinder, to a more viable healthy nail plate or bed tissue 5 nails or fewer in number. Silver nitrate was used for any petechial bleeding as necessary. Definitive antifungal treatment options, both pharmaceutical and surgical, have been reviewed and discussed with the patient. The patient solely prefers the use of intermittent/as needed professional debridement services for their nail condition and understands that additional periodic treatments may be required as necessary to maintain effective symptomatic relief - 79013 Nail Reduction Nail Reduction (-27) Trimming o f all dystrophic nails - Due to the at risk nature of the patients medical condition as documented in the exam findings, performance of this nail treatment is medically necessary as its management by an unskilled/untrained nonprofessional would put this patients foot and overall health at risk. Therefore, the dystrophic nails, in locations as stated and described in the exam ( T2, T3, T6, T7, T8, T9 ), were debrided by the phisician of record to reduce/remove overall nail length and girth, by manual and electrical means with use of a nail nipper and/or dremel, to more viable healthy nail plate or bed tissue - G0127, Q8 Progress Notes * Tj ABRAHAMOB:1939 (84 yo M)Acc No.[id number]:03/25/2024 Progress Notes Patient:?Vance ABRAHAM Provider:?Jordan Cassidy DPM :1940???Age:84 Y???Sex:Male Acosta e:03/25/2024 Address:[address] [place], [place] [id number] Pcp:Cash Early MD Subjective: * Chief Complaints: * ???At Risk FootcarePainful N ail(s) aggravated by shoes and causing difficulty standing/walking.Toe Irritation * HPI: ???At Risk footcare:?Pt States Last PCP Visit:?Date?03/18/2024 ???Toe pain:?Location:?B/L feet.?Duration:?several years.?Course:?worse.?Aggravated by:?shoes, any pressure.?Treatments:?change in shoes.? * ROS:?General/Constitutional:?Nausea?denies.?Vomiting?denies.?Hunger Thirst?denies.?Loss appetite?denies.?Chills?denies.?Fatigue?denies.?Fever?denies.?Night Sweats?denies.?Unexplained weight loss?denies.?Unexplained weight gain?denies.?HEENTM:?Dentures?denies.?Dizziness?denies.?Glasses/contacts?denies.?Retinopathy?den ies.?Blurred/double vision?denies.?TMJ?denies.?Discharge/drainage?denies.?Implants?denies.?Sore throat?denies.?Dental implants?denies.?Hard of hearing ?admits.?Difficulty chewing/swallowing/speaking?denies.?Nose bleeds?denies.?Sore mouth?denies.?Respiratory:?On O xygen?denies.?Pneumonia/pleurisy?denies.?Bronchitis?denies.?Emphysema?denies.?Co ughing?denies.?Cough blood?denies.?Shortness of breath?denies.?Wheezing?denies.?Cardiovascular:?Pacemaker?denies.?MVP?denies.?WPW?denies.?CHF?denies.?Heart attack?denies.?Septal defect?denies.?Rapid beat?denies.?Chest pain ?denies.?Atrial Fib.?denies.?Murmur/Palpitations?denies.?Gastrointestinal:?Hemorrhoids?denies.?Stomach/Abdominal pain?denies.?Dark blood stool?denies.?Irritable bowel ?denies.?Constipation?denies.?Diarrhea?denies.?Hematology:?Swelling?admits.?Clots?denies.?Varicose Veins?denies.?Bruising?admits, on aspirin.?Bleeding problem?admits, on anticoagulants.?Genitourinary:?Blood urine?denies.?Frequent/Painfu/urination/bladder control?denies.?Kidney stones?denies.?Infection (UTI)?denies.?Nephropathy?denies.?sex trans dis (STD)?denies.?Prostate?admits.?Musculoskeletal:?Hammertoes?admits.?Bunions?denies.?Back Pain?denies.?Muscle Cramps/ Resting?denies.?Muscle cramps / walking?denies.?Generalized aches and pains?denies.?Weakness?denies.?Integ.:?Lopez?denies.?Scars?denies.?Corns/calluses?admits.?Ingrown nails?admits.?Painful nails?admits.?Open Sores?denies.?Rashes?denies.?Neurologic:?Difficulty sleeping?denies.?Brain disorder?denies.?Numbness?denies.?Balance t rouble?denies.?Confusion?denies.?Fainting/blackouts?denies.?Tingling?denies.?Sanket mors?denies.? * Medical History:? * Surgical History:?No Surgica l History documented. * Hospitalization/Major Diagno stic Procedure:?No Hospitalization History. * Family History:?Mother: dece ased.?Father: .? * Social History:?Tobacco Use:?Tobacco use other than smoking?Are you an other tobacco user??No ?Tobacco Control (Standard)?Tobacco use:?Nonsmoker ?Additional Findings: Tobacco non-user?Current nonsmoker ???Drugs/Alcohol:?Drugs?Have you used drugs other than those for medical reasons in the past 12 months??No ???Miscellaneous:?Caffeine: yes. ?Exercise: no. ?Marital status: . ?Occupation: Retired. ???Drug/Alcohol:?AUDIT-C (Standard)?Did you have a drink containing alcohol in the past year??Yes ?How often did you have six or more drinks on one occasion in the past year??Declined to specify (0 point) ?How many drinks did you have on a typical day when you were drinking in the past year??Declined to specify (0 point) ?How often did you have a drink containing alcohol in the past year??2 to 4 times a month (2 points) ?Points?2 ?Interpretation?Negative * Medications:?TakingProbiotic Magnesium Citrate Centrum Silver Aspir-81 amLODIPine Besylate 5 MG Tablet 1 tablet Orally Once a day Atorvastatin Calcium 80 MG Tablet 1 tablet Orally Once a day metFORMIN HCl 1000 MG Tablet 1 tablet with a meal Orally Once a day Omeprazole 20 MG Capsule Delayed Release 1 capsule 1/2 to 1 hour before morning meal Orally Once a day Medication List reviewed and reconciled with the patientTaking Probiotic Taking Magnesium Citrate Taking Centrum Silver Taking Aspir-81 Taking amLODIPine Besylate 5 MG Tablet 1 tablet Orally Once a day Taking Atorvastatin Calcium 80 MG Tablet 1 tablet Orally Once a day Taking metFORMIN HCl 1000 MG Tablet 1 tablet with a meal Orally Once a day Taking Omeprazole 20 MG Capsule Delayed Release 1 capsule 1/2 to 1 hour before morning meal Orally Once a day Medication List reviewed and reconciled with the patient * Allergies:?N.K.D.A.yes[Aller gies Verified] Objective: * Vitals:?Wt: 190, Shoe size: 9.5, BP: 129/71 mm Hg, BS: does not test, Wt-k.18 kg. * ???Past Orders: ???Lab:HEMOGLOBIN A1C (GLYCO HEMOGLOBIN) (Order Date - 10/13/2023) (Collection Date & Time - 10/13/2023 09:36 AM) ? Value Reference Range ?HEMOGLOBIN A1C % (HH) 7.2 * Examination: ???Ophthalmology Referral: ?DIABETES EYE EXAM?Procedure Performed:?Yes ?Date of Exam Performed?04/10/2023 States next appt soon ?Diabetic Retinopathy Screening:?Yes ?Retinal Screening Performed:?Yes ?Findings of Diabetic Eye Exam:?no retinopathy?Vascular: ?DP PULSES (B):? 0/4, B/L.?PT PULSES (B):? 0/4, B/L.?CAPILLARY FILL TIME:? delayed, all digits, B/L.?TROPHIC CONDITION-TEXTURE/ELASTICITY/TURGOR/HAIR GROWTH (B):? decreased, fragile, thin, shiny skin, with sparse to absent hair growth, B/L.?TEMPERTURE GRADIENT (C):? decreased, cool to cool, proximal to distal, B/L.?PIGMENTATION:?rubrous, B/L.?EDEMA (C):?2/4, non-pitting, without aching pain, Leg(s), Ankle(s), Foot, B/L.?CLAUDICATION (C):?denies, B/L.?REST PAIN:?denies, B/L.?PARESTHESIA (C):?absent, B/L.?BURNING (C):?present, B/L.?Nails: ?NAILS are:?Elongated, overgrown, dystrophic, lytic, greater than 3mm thick, discolored and friable with crumbly malodorous subungual debris, with pain on palpation ( TA, T1, T4, T5 ), all other nails not described with characteristics as possessing mycosis are elongated, overgrown, and dystrophic ( T2, T3, T6, T7, T8, T9?).?Dermatologic: ?SKIN FINDINGS:?Skin exam reveals Keratotic lesion(s) located at, SUB MTH (s), 5, Right, Plantar Heel(s), B/L.?Neurological: ?SENSORY:?Pt relates, burning, Forefoot, B/L, Neurological exam reveals intact sensorium, pain sensation normal, vibration sensation intact, pinprick sensation is normal in the lower extremities, 5.07 monofilament test performed at plantar aspects of 5 varied sites per foot shows sensation, normal, B/L.?Orthopedic: ?MUSCLE STRENGTH:?5/5 all groups in a symmetrical fashion, B/L.?FOOT MORPHOLOGY:?Pes Planus structure, (-) Charcot collapse/destruction noted at MTJ.?DIGITAL DEFORMITIES:?Digital contracture, PIPJ, 2-5 B/L, incompl-reducible to push-up test, no over, nor underlapping,?there is?evidence of shoe producing skin irritation.?FOOTWEAR:?worn, non-supportive, shoe gear properties exacerbate patient's foot/toe deformity.?General Examination: ?GENERAL APPEARANCE:?Reveals a pleasant, alert, well nourished, well- developed, well hydrated individual, who demonstrates proper attention to hygiene/body habitus, and is in no acute distress, Pt serves as own historian for office visit today.?ORIENTED:?person, place, and time.?FOOT EXAM:?Lower Extremity Neurological Exam performed:?Yes Date ?Visual exam of foot performed:?Yes ?Date?03/25/2024 ?Footwear Evaluation?Footwear Evaluation performed:?Yes??? Assessment: * Assessment: 1.?Type 2 diabetes mellitus with diabetic peripheral angiopathy without gangrene - E11.51???Notes :Q7(A), Q8(2B), Q9(1B,2C)???2.?Tinea unguium - B35.1???3.?Pain in right toe(s) - M79.674???4.?Pain in left toe(s) - M79.675???5.?Other hammer toe(s) (acquired), left foot - M20.42???Specify :Chronic problem, Worse (4),Rx Management (4)???6.?Other hammer toe(s) (acquired), right foot - M20.41 (Primary)???Specify :Chronic problem, Worse (4),Rx Management (4)??? Plan: * Treatment: 2.?Type 2 diabetes mellitus with diabetic peripheral angiopathy without gangrene?Procedure: 55509-TWJX SKIN LESIONS, 2 TO 4 ?Procedure: J0779-[id number] DYSTROPHIC NAILS ANY # 3.?Tinea unguium?Procedure: 97834-HDQMXRF NAIL, 1-5 * Procedures:?Debride Nails 1-5:?Procedure:?Due to the clinical pathology outlined in the exam findings, performance of this nail treatment is medically necessary as its management by an unskilled/untrained nonprofessional would put this patients foot and overall health at risk. Therefore, debridement to affected nail(s), as described in exam (?TA, T1, T4, T5?), was performed exclusively by the physician of record to reduce/remove overall nail length, girth, thickness, subungual debris, and necrotic tissue, by manual and/or electrical means through the use of a nail nipper and/or dremel stylegrinder, to a more viable healthy nail plate or bed tissue 5 nails or fewer in number. Silver nitrate was used for any petechial bleeding as necessary. Definitive antifungal treatment options, both pharmaceutical and surgical, have been reviewed and discussed with the patient. The patient solely prefers the use of intermittent/as needed professional debridement services for their nail condition and understands that additional periodic treatments may be required as necessary to maintain effective symptomatic relief - 91233.?Keratoma Treatment:?Parring or Cutting of Benign Hyperkeratotic Lesion(s)?(-56) 2-4 Lesions - Due to the at risk nature of the patients medical condition as documented in the exam findings, performance of this keratoderma treatment is medically necessary as its management by an unskilled/untrained nonprofessional would put this patients foot and overall health at risk. Therefore, the benign hyperkeratotic lesions, ( 3 ) in total, locations as stated and described in the exam (?SUB MTH (s),?5,?Right,?Plantar Heel(s),?B/L?), were pared, and/or cut utilizing a sterile 15 blade, tissue nippers, and/or power dremel instrumentation by the physician of record - 88954, Q8.?Nail Reduction:?Nail Reduction?(-27) Trimming of all dystrophic nails - Due to the at risk nature of the patients medical condition as documented in the exam findings, performance of this nail treatment is medically necessary as its management by an unskilled/untrained nonprofessional would put this patients foot and overall health at risk. Therefore, the dystrophic nails, in locations as stated and described in the exam ( T2, T3, T6, T7, T8, T9 ), were debrided by the phisician of record to reduce/remove overall nail length and girth, by manual and electrical means with use of a nail nipper and/or dremel, to more viable healthy nail plate or bed tissue - G0127, Q8.? * Procedure Codes:?G0127 MICK ING DYSTROPHIC NAILS ANY #, Modifiers: XS , [id number] DEBRIDE NAIL, 1-5, Modifiers: XS 49732 TRIM SKIN LESIONS, 2 TO 4, Modifiers: XS , Q8 * Preventive Medicine:? ??Counseling:?Discussion:?-04: Office or other outpatient visit for the evaluation and management of a new patient, which required a medically appropriate history and/or examination and MODERATE level of DECISION MAKING for: 1 OR MORE CHRONIC PROBLEM(S) THATS WORSENING, 2 STABLE CHRONIC PROBLEMS, A NEWLY DIAGNOSED PROBLEM WITH UNCERTAIN PROGNOSIS, AN ACUTE COMPLICATED INJURY WITH MULTIPLE TREATMENT OPTIONS, OR AN ACUTE PROBLEM WITH ACCOMPANYING SYSTEMIC SYMPTOMS, THAT POSE(S) A MODERATE RISK OF MORBIDITY. THIS CONDITION MAY ALSO INCLUDE RX DRUG MANAGEMENT, OR A DECISON FOR MINOR SURGERY. The visit on the day of the encounter encompassed interpreting the data and educating the patient as to the nature of their condition, treatment options available according to their individual PMH, meds, allergies, and overall health/living conditions, as well as any potential risks or complications that may occur from a failure to adhere to, and participate in, the recommended course of therapy. The discussion included a complete verbal, and/or written explanation of the examination results, any x-rays taken, the proposed diagnosis, and outline of the treatment plan. A schedule for future care needs was also explained. The patient verbalized an understanding of the instructions at this time and agreed to be an active participant in their treatment. If the patient should think of any questions or concerns after the visit, I have encouraged the patient to call the office.?Digital Surgery:?Digital surgery was discussed with the patient, We elected to try conservative treatment at the present time, due to the patients medical history and increased asssociated post-operative risks.?Digital Treatment:?HT- I explained to the patient the possible etiologies of Hammertoes, including genetics/foot type/shoegear/activity level/exercise routine and the risks/benefits of all the different treatment options for their pain including: No treatment at all, Rest, Ice, New/supportive/wider/deeper Shoegear, Digital Padding/Strapping/Taping/Bracing/Gel protective sleeves, Foot/Ankle AFO Bracing, Stretching exercises, Deep Tissue Massage, Arch support/shoe inserts with splay metatarsal padding, and Custom orthoses. I insisted that any digital devices be removed daily and not worn overnight for safety. The patient is to carefully examine the toes daily for any skin irritation while using any splinting or padding device. The advantages and disadvantages of each option were discussed and the patients questions re: shoegear, padding, custom vs prefabricated inserts, activity level, and consistency in home treatment regimens for optimal success were answered to their verbally confirmed satisfaction.?Shoe Gear Counseling:?SHOE Rx - The patient was counseled in great detail on their muscoloskeletal foot and toe deformities which coincided with the dermatological presentations visualized on exam. We discussed how their deformities put the integrity of their feet at risk for potential pedal complications which makes the accomidative diabetic shoes and cutomizable inserts medically necessary. We discussed the different shoe and insert treatment types and options, as well as the important advantages for adhering to regularly wearing these accomidative devices daily. The patient was made aware of the fact that a failure to abide by these recommedations may be deleterious to their foot health as they are able to prevent many pedal complications such as skin irritation, skin ulceration, infection, and even loss of toe/foot/leg/or life. Time was also spent with the patient dispensing and discussing proper diabetic footcare techniques including daily skin moisturization, daily foot inspection for any interruption in skin integrity including open lesions, or sign of infection such as redness/malodor/drainage/swelling. Also discussed and recommended were procedures regarding daily shoe inspection for the presence of internal foreign bodies as well as any visualized irregular shoe or insert wear. Patient questions re: shoes, inserts, and self foot inspections were answered to their satisfaction as the patient verbally confirmed a full understanding of the above information. A Rx for Extra Depth Orthopedic Shoes with 3 pair of custom heat-molded inserts was dispensed.? ??Screening/Special Tests:?Fall Risk?Screening:?No falls in the past year ?FALLS: Screening for Future Fall Risk?Have you had any falls with injury in the past year??No * Follow Up:?prn * Images: * Sign off status: Completed true * Provider:?Jordan Cassidy DPM Date:?2024 Generated for Niki mancia/Concepción/Yissel on:?05/27/2024 11:38 AM EDT History and Physical Notes * HPI (History of Present Illness) Category Sub-Category Detail Notes Category Not es Toe pain Location: B/L feet Duration: several years Course: worse Aggravated by: shoes, any pressure Treatments: change in shoes At Risk footcare Pt States Last PCP Visit: Date: 5 Examination Category Sub-Category Detail Notes Category Not es Neurological SENSORY: Pt relates, burn ing, Forefoot, B/L, Neurological exam reveals intact sensorium, pain sensation normal, vibration sensation intact, pinprick sensation is normal in the lower extremities, 5.07 monofilament test performed at plantar aspects of 5 varied sites per foot shows sensation, normal, B/L Dermatologic SKIN FINDINGS: Skin exam reveal s Keratotic lesion(s) located at, SUB MTH (s), 5, Right, Plantar Heel(s), B/L Orthopedic FOOT MORPHOLOGY: Pes Planus stru cture, (-) Charcot collapse/destruction noted at MTJ FOOTWEAR EVALUATION: worn, non-supportiv e, shoe gear properties exacerbate patient's foot/toe deformity DIGITAL DEFORMITIES: Digital contracture , PIPJ, 2-5 B/L, incompl-reducible to push-up test, no over, nor underlapping, there is evidence of shoe producing skin irritation MUSCLE STRENGTH: 5/5 all groups in a symmetrical fashion, B/L General Examination GENERAL APPEARANCE: Reveals a pleasant, alert, well nourished, well-developed, well hydrated individual, who demonstrates proper attention to hygiene/body habitus, and is in no acute distress, Pt serves as own historian for office visit today FOOT EXAM: Lower Extremity Neurological Exa m performed:: Yes Date Visual exam of foot performed:: Yes Date: 03/25/2024 ORIENTED: person, place, and t mushtaq Footwear Evaluation Footwear Evaluation performe d:: Yes Ophthalmology Referral DIABETES EYE EXAM Procedure Perform ed:: Yes ?Date of Exam Performed: 04/10/2023 Stat es next appt soon Diabetic Retinopathy Screening:: Yes Retinal Screening Performed:: Yes Findings of Diabetic Eye Exam:: no retin opathy Vascular DP PULSES (B): 0/4, B/L PT PULSES (B): 0/4, B/L CAPILLARY FILL TIME: delayed, all digits , B/L TEMPERTURE GRADIENT (C): decreased, cool to cool, proximal to distal, B/L TROPHIC CONDITION-TEXTURE/ELASTICITY/TURGOR/HAIR GROWTH (B): decreased, fragile, thin, shiny skin, wi th sparse to absent hair growth, B/L EDEMA (C): 2/4, non-pitting, wi thout aching pain, Leg(s), Ankle(s), Foot, B/L CLAUDICATION (C): denies, B/L REST PAIN: denies, B/L PIGMENTATION: rubrous, B/L PARESTHESIA (C): absent, B/L BURNING (C): present, B/L Nails NAILS are: Elongated, overg rown, dystrophic, lytic, greater than 3mm thick, discolored and friable with crumbly malodorous subungual debris, with pain on palpation ( TA, T1, T4, T5 ), all other nails not described with characteristics as possessing mycosis are elongated, overgrown, and dystrophic ( T2, T3, T6, T7, T8, T9 )
== END 2024-05-27 10:15 | disposition home or self-care (01) ==
LOC: HO.XRAY 10:14
PROVIDERS: PCP Family Medicine; Visit Provider Family Medicine
DX: R60.0 Localized edema (principal); M79.641 Pain in right hand
CPT/HCPCS: 72050

== ENCOUNTER → 2024-05-27 10:21 | Outpatient (BNV) | payer OTHER, SELFPAY | PROVIDERS: PCP Family Medicine; Visit Provider Radiology Diagnostic Radiology | DX: M47.812 Spondylosis without myelopathy or radiculopathy, cervical region (principal); M79.641 Pain in right hand | CPT/HCPCS: 72050 ==

== ENCOUNTER 2024-07-24 14:50 | Outpatient (AMB) | payer OTHER, SELFPAY ==
--- NOTE | 2024-07-24 16:07 | MHC.OFFVIS ---
Intake Visit Reasons: New prob- RT ring finger pain Intake Note: Vance 84 yr old male presents today for a new problem visit for his right hand middle , index and ring finger. 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 Also mentioned his middle finger is locking. Hx of DM. Allergies No Known Allergies [No Known Allergies*] Allergy (Verified 07/24/24 16:10) HPI HPI New prob- RT ring finger pain: Details: Vance 84 yr old male presents today for a new problem visit for his right hand middle , index and ring finger. 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 Also mentioned his middle finger is locking. Hx of DM. Patient states that he finds both these issues bothersome, but states that ?I am 84 years old?, and is unsure of how invasive he would like treatment to be. [facility] Medical History (Updated 07/28/24 @ 22:32 by MUKESH Artis) Non-toxic multinodular goiter Dyslipidemia Hypertension Diabetic polyneuropathy associated with type 2 diabetes mellitus Controlled type 2 diabetes mellitus Surgical History History of esophagogastroduodenoscopy (EGD) Hx of colonoscopy History of back surgery Hx of hernia repair Family History Father No problems noted. Mother Gastric cancer Social History Alcohol intake: current Alcohol intake frequency: holidays/special occasions only Patient Tobacco Use Status: Never used Tobacco Review of Systems Const All systems reviewed & are unremarkable except as noted in HPI and below Physical Exam Extrem Other: Patient is alert, oriented, and in no acute distress. Neuro: Normal sensation of the tips of all digits of bilateral hands at this time Vascular: Cap refill brisk Pain: Tenderness to palpation of the A1 alfredo of the left ring finger and right middle finger Pain associated with locking and catching of the digits ROM: Visible and palpable locking and catching of the left ring finger and right middle finger Patient is able to flex and extend all other digits of bilateral hands fully and without difficulty Skin: No lacerations or abrasions. General: No ecchymosis, erythema, or evidence of infection. Psych: Appears grossly normal Affect normal Attitude cooperative Assessment & Plan Assessment & Plan (1) Numbness and tingling in left hand: Code(s): R20.0 - Anesthesia of skin; R20.2 - Paresthesia of skin Category: Medical (2) Trigger finger, left ring finger: Code(s): M65.342 - Trigger finger, left ring finger Category: Medical (3) Numbness and tingling in right hand: Code(s): R20.0 - Anesthesia of skin; R20.2 - Paresthesia of skin Category: Medical (4) Trigger finger, right middle finger: Code(s): M65.331 - Trigger finger, right middle finger Category: Medical Plan 1. Trigger finger, right middle finger 2., trigger finger, left ring finger 3. Numbness and tingling of left hand Patient is educated about these conditions Patient is educated about the treatment options available At this time, patient states that he is uninterested in either injections or surgical intervention for his trigger fingers Patient is also offered an EMG and nerve conduction study for assessment of the health of the nerves of the left upper extremity and to rule out carpal tunnel syndrome, but declines, stating that he has had these studies on his legs and found them very unpleasant Patient is educated that if he would like to explore these treatment and diagnostic options at a different time, he can call our office for repeat evaluation Patient is amenable to this plan Follow-up as needed Coding Level of Care Code New Pt Level 3 (59471) Diagnoses Numbness and tingling in left hand R20.0; R20.2 Trigger finger, left ring finger M65.342 Numbness and tingling in right hand R20.0; R20.2 Trigger finger, right middle finger M65.331
--- OUTSIDE RECORDS SUMMARY | 2024-07-24 17:03 | XMS_ITS | Patient Health Record ---
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 Name Role Phone Sharath WARNER, Cash Primary Care Provider Unavailab Jordan Aly Unavailable [phone] Allergies No Known Allergies Results Component Value Reference Range Notes HEMOGLOBIN A1C (GLYCOHEMOGLO BIN) Reviewed date:03/25/2024 09:37:32 AM Interpretation: Performing Lab: Notes/Report: HEMOGLOBIN A1C % (HH) 7.2 HEMOGLOBIN A1C (GLYCOHEMOGLO BIN) Reviewed date:07/11/2024 03:11:19 PM Interpretation: Performing Lab: Notes/Report: HEMOGLOBIN A1C % (HH) 7.2 HEMOGLOBIN A1C (GLYCOHEMOGLO BIN) Reviewed date:06/05/2024 10:40:14 AM Interpretation: Performing Lab: Notes/Report: HEMOGLOBIN A1C % (HH) 7.2 Reason For Referral No Information Medications Medication SIG (Take, Route, Frequency, Duration) Notes Start Date End Date Status Extra Depth Orthopedic Shoes, (1) Pair With (3) Pair Custom Heat Molded Multidensity Innersoles Dx: NIDDM/PVD(E11.51), Hammertoe Foot Deformity(M20.41,M20.42), Preulcerative Skin Lesion(s)(L85.1) Wear Daily for 365 days 03/25/2024 Active Omeprazole 20 MG 1 capsule 1/2 to 1 h our before morning meal Orally Once a day Active metFORMIN HCl 1000 MG 1 tablet with a me al Orally Once a day Active Atorvastatin Calcium 80 MG 1 tablet Oral ly Once a day Active Terbinafine HCl 1 % 1 application Emergency Room Orderly ally Once a day for 30 days 07/11/2024 Active amLODIPine Besylate 5 MG 1 tablet Orally Once a day Active Aspir-81 Active Centrum Silver Activ e Magnesium Citrate Ac tive Hydrocortisone 2.5 % 1 application Exter jessica to affected areas of itching irritated skin on foot/feet Twice a day for 30 days Active Probiotic Active Social History Tobacco Use: Social History [...] Problem Acquired hammer toe of right foot (2797850694181 105) Other hammer toe(s) (acquired), right foot (M20.41) Active confirmed Problem Acquired hammer toe of left foot (9800946297537 103) Other hammer toe(s) (acquired), left foot (M20.42) Active confirmed Problem Type 2 diabetes mellitus with peripheral angiopathy (566463628) Type 2 diabetes mellitus with diabetic peripheral angiopathy without gangrene (E11.51) Active confirmed Q7(A), Q8(2B), Q9(1B,2C) Vital Signs Blood pressure diastolic 70 mm Hg 07/11/2024 Height 5ft 8in in 07/11/2024 Blood pressure systolic 130 mm Hg 07/11/2024 Weight 185 lbs 07/11/2024 BMI 28.13 kg/m2 07/11/2024 Procedures Procedure Date Ordered Date Performed Result Body Sit e 67885-IKMNQXR NAIL, 1-5 03/25/2024 N/A 93939-NPET SKIN LESIONS, 2 TO 4 03/25/2024 N/A R9551-DNPYDOVW DYSTROPHIC NAILS ANY # 03/25/2024 N/A 27224-FNTKHDH NAIL, 1-5 06/05/2024 N/A 68245-DXKH SKIN LESIONS, 2 TO 4 06/05/2024 N/A Z7645-XJYJQELZ DYSTROPHIC NAILS ANY # 06/05/2024 N/A Encounters Encounter Location Date Provider Diagnosis [address] [address] 03/25/2024 Jordan Cassidy Type 2 diabetes mellitus with diabetic peripheral angiopathy without gangrene E11.51 ; Tinea unguium B35.1 ; Pain in right toe(s) M79.674 ; Pain in left toe(s) M79.675 ; Other hammer toe(s) (acquired), left foot M20.42 and Other hammer toe(s) (acquired), right foot M20.[address] [address] 06/05/2024 Jordan Cassidy Type 2 diabetes mellitus with diabetic peripheral angiopathy without gangrene E11.51 ; Tinea unguium B35.1 ; Pain in right toe(s) M79.674 ; Pain in left toe(s) M79.675 and Tinea pedis of both feet B35.[address] [address] 07/11/2024 Jordan Cassidy Tinea pedis of both feet B35.3 and Nummular eczematous dermatitis L30.[address] [address] 06/11/2024 Jordan Cassidy [address] [address] 06/12/2024 Jordan Cassidy Assessments Encounter Date Diagnosis (ICD Code) Assessment Notes Treatment Notes Treatment Clinical Notes Section Notes 03/25/2024 Type 2 diabetes mellitus with diabetic peripheral angiopathy without gangrene (ICD-10 - E11.51) Q7(A), Q8(2B), Q9(1B,2C) 06/05/2024 Tinea unguium (ICD-10 - B35.1) 06/05/2024 Type 2 diabetes mellitus with diabetic peripheral angiopathy without gangrene (ICD-10 - E11.51) Q7(A), Q8(2B), Q9(1B,2C) 07/11/2024 Tinea pedis of both feet (ICD-10 - B35.3) 07/11/2024 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) 06/05/2024 Pain in right toe(s) (ICD-10 - M79.674) 03/25/2024 Tinea unguium (ICD-10 - B35.1) 03/25/2024 Pain in right toe(s) (ICD-10 - M79.674) 06/05/2024 Pain in left toe(s) (ICD-10 - M79.675) 03/25/2024 Pain in left toe(s) (ICD-10 - M79.675) 06/05/2024 Tinea pedis of both feet (ICD-10 - B35.3) 03/25/2024 Other hammer toe(s) (acquired), left foot (ICD-10 - M20.42) 03/25/2024 Other hammer toe(s) (acquired), right foot (ICD-10 - M20.41) Patient Educated with: DIABETIC FOOT CARE INSTRUCTIONS.p df (DIABETIC FOOT CARE INSTRUCTIONS.p df) Plan Of Treatment Pending Test Test Name Order Date 64286-TMWAHHR NAIL, 1-5 03/25/2024 88283-TCCBEBF NAIL, 1-5 06/05/2024 10156-IJNR SKIN LESIONS, 2 TO 4 06/06/19 25 45251-CYKC SKIN LESIONS, 2 TO 4 03/25/19 25 W2922-YMOBRIOL DYSTROPHIC NAILS ANY # O6253-MNOFHVXK DYSTROPHIC NAILS ANY # Next Appt Details Provider Name:Jordan Cassidy , 08/29/2024 04:00:00 PM, [address] [facility] [address], [place], [address], Insurance Providers Payer Name Payer Address Payer Phone Subscriber Number Group Number Insured Name Patient Relationship to Insured Coverage Start Date Coverage End Date [facility] [address] [place] [address] [place] [id number] Vance Flowers Self - patient is the insured 4 Medical (General) History Medical History History ICD Code Diabetic High Blood Pressure Hypercholesterolemia Reflux
== END 2024-07-24 16:20 | disposition home or self-care (01) ==
LOC: HO.HOS 14:51
PROVIDERS: PCP Family Medicine
DX: R20.0 Anesthesia of skin (principal); R20.2 Paresthesia of skin; M65.342 Trigger finger, left ring finger; M65.331 Trigger finger, right middle finger
CPT/HCPCS: 99213

== ENCOUNTER 2024-10-07 10:30 | Outpatient (AMB) | payer OTHER, SELFPAY ==
--- NOTE | 2024-10-07 10:48 | A.OFFPC_ITS ---
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 Required: No Accompanied by: Spouse Allergies No Known Allergies (No Known Allergies*) Allergy (Verified 10/07/24 10:49) Tobacco use date assessed: 10/07/24 Fall risk assessment: No Falls in past year Last assessed Fall Risk: 10/07/24 Dental Screening Dental Screen Date: 10/07/24 Did you have a dental visit in the last 12 months?: Yes Did you have a dental problem in the last 6 months where you did not have access to dental care?: No Was dental information given to patient?: No HPI HPI Comments History of Present Illness Details 84-year-old male with history of hyperte nsion, hypercholesterolemia, obstructive sleep apnea, coronary artery disease, cervical spondylosis, type 2 diabetes, GERD, CKD stage 3 presents to the office today for management of chronic conditions and to establish care. Accompanied by his , Patricia. SILVANA- no longer wearing cpap. Still some snoring, no apnea. Hypertension-BP 134/62. On amlodipine 10 mg daily Hx prostate cancer- Follows with Dr. Ramon, [facility]. No chemo, radiation, or surgery. Surveillance CAD/HTN/HLD- s/p CABG x2 2022. On ASA, statin. Follows with Dr. [facility] Cardiology Type 2 diabetes- on metformin. Compliant with diet. POC fasting average 150. Eye exams UTD, no issues. Complicated by polyneuropathy, not overly bothersome Concerns: None Health maintenance: No longer undergoing screening colonoscopy or PSA ROS: General: No fevers, malaise, unintentional weight loss HEENT: No blurred vision, diplopia. No sore throat, nasal congestion, rhinorrhea, sinus pain, ear pain Cardiovascular: No chest pain, palpitations, or leg edema Respiratory: No shortness of breath, wheezing, cough GI: No abdominal pain, nausea, vomiting, diarrhea, constipation, melena, hematochezia : No dysuria, hematuria, increased urinary frequency, decreased urinary output MSK: No myalgia, back pain Neuro: No headaches, weakness, paresthesias Skin: No rashes or lesions EXAM: Constitutional - Awake and Alert, No apparent distress Eyes - PERRL Cardiovascular - S1S2, RRR, No edema Respiratory - Normal lung expansion, Normal respiratory effort, No respiratory distress, CTA bilaterally Extremities - no calf tenderness bilaterally, no swelling Skin - Warm/Dry Neurological - Alert & oriented x3 Psychological - Appropriate affect [facility] Medical History (Updated 10/07/24 @ 11:39 by MUKESH Cohen) Type 2 diabetes with nephropathy CAD (coronary artery disease) Non-toxic multinodular goiter Dyslipidemia Hypertension Diabetic polyneuropathy associated with type 2 diabetes mellitus Controlled type 2 diabetes mellitus Surgical History (Updated 10/03/24 @ 16:43 by Dayana Adamson) History of esophagogastroduodenoscopy (EGD) Hx of colonoscopy (~04/14/14) History of back surgery Hx of hernia repair Family History Father No problems noted. Mother Gastric cancer Social History Housing: House Alcohol intake: current Alcohol intake frequency: holidays/special occasions only Patient Tobacco Use Status: Never used Tobacco e-Cigarette/Vaping Use: Never Used service: No Current occupational status: retired Cognitive needs: No Hearing needs: No Vision needs: No Questionnaire PHQ-9 Over the last 2 weeks, how often have you been bothered by any of the following problems? 1. Little interest or pleasure in doing things: not at all 2. Feeling down, depressed, or hopeless: several days 3. Trouble falling or staying asleep, or sleeping too much: several days 4. Feeling tired or having little energy: several days 5. Poor appetite or overeating: not at all 6. Feeling bad about yourself - or that you are a failure or have let yourself or your family down: not at all 7. Trouble concentrating on things, such as reading the newspaper or watching television: not at all 8. Moving or speaking so slowly that other people could have noticed. Or the opposite - being so fidgety or restless that you have been moving around a lot more than usual: not at all 9. Thoughts that you would be better off or of hurting yourself in some way: not at all Total score: 3 Depression Screening Interpretation: Negative Depression Screening Done: Yes 79011 - PHQ-9 Billing: Yes Source: Developed by Drs. Jm Verdugo, Olive Perez, Lester Rojas and colleagues, with an educational vini from [employer]. Thrive Questionnaire Date Thrive assessed: 10/07/24 I am a: Patient What is your living situation today?: I have a steady place to live Within the past 12 months, did the food you bought not last and you didn't have the money to get more?: Never true Within the past 12 months, did you worry whether your food would run out before you got money to buy more?: Never true Do you have trouble paying for medicines?: No Do you have trouble getting transportation to medical appointments?: No Do you have trouble paying your heating and electricity bill?: No Do you have trouble taking care of your child, family member or friend?: No Do you have trouble with day-to-day activities such as bathing, preparing meals, shopping, managing finances, etc.?: No Are you currently unemployed and looking for a job?: No Are you interested in more education?: No Please select the resources that you would like help with: None THRIVE Score: 0 KRISTIN-7 AMB Questionnaire KRISTIN-7 Date KRISTIN - 7 assessed: 10/07/24 Feeling nervous, anxious, or on edge: 0 = Not at all Not being able to stop or control worryin = Not at all Worrying too much about different things: 0 = Not at all Trouble relaxin = Not at all Being so restless that it is hard to sit still: 0 = Not at all Becoming easily annoyed or irritable: 0 = Not at all Feeling afraid as if something awful might happen: 0 = Not at all Total KRISTIN-7 score (0-4 normal; 5-9 mild; 10-14 moderate; 15-21 severe): 0 Source: Developed by Drs. Jm Verdugo, Lester Rodriguez and colleagues, with an educational vini from [employer]. KRISTIN-7 Assessment Billing KRISTIN-7 Assessment Tool: KRISTIN-7 Assessment 87727 Physical exam (Primary Care) Vital Signs: Last Vital Signs Temp 98.3 F 10/07/24 10:58 Pulse 60 10/07/24 10:58 Resp 18 10/07/24 10:58 BP 134/62 10/07/24 10:58 Pulse Ox 99 10/07/24 10:58 Oxygen Delivery Method Room Air 10/07/24 10:58 BMI result Body Mass Index 28.1 Tobacco/Smoking Status: Tobacco use Status Tobacco use date assessed 10/07/24 10/07/24 10:54 Patient Tobacco Use Status Never used Tobacco 10/07/24 10:50 e-Cigarette/Vaping Use Never Used 10/07/24 10:54 PHQ-9: PHQ-9 Score PHQ-9: Total score 3 10/07/24 11:19 Depression Screening Interpretation: Negative Thrive Assessment: Date of Thrive Assessment Date Thrive assessed 10/07/24 10/07/24 11:02 Coding Level of Care Code New Pt Level 4 (53943) Complex EM visit Add On G2211 Diagnoses CAD (coronary artery disease) I25.10 Hypertension I10 Dyslipidemia E78.5 Controlled type 2 diabetes mellitus E11.9 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 Continue following with Cardiology. Continue ASA, statin. (2) Hypertension: Code(s): I10 - Essential (primary) hypertension Category: Medical Plan: Controlled. Continue amlodipine 10 mg (3) Dyslipidemia: Code(s): E78.5 - Hyperlipidemia, unspecified Category: Medical Plan: Lipid panel ordered. Continue statin (4) Controlled type 2 diabetes mellitus: Code(s): E11.9 - Type 2 diabetes mellitus without complications Category: Medical Plan: Hemoglobin A1c ordered. Continue metformin, diabetic diet. Continue annual eye exams (5) Type 2 diabetes with nephropathy: Code(s): E11.21 - Type 2 diabetes mellitus with diabetic nephropathy Category: Medical Plan Follow-up in the office in 3 months. Labs to be completed following visit today. Orders: Orders Basic Metabolic Panel Today E11.9 - Type 2 diabetes mellitus without complications, E78.5 - Hyperlipidemia, unspecified, I10 - Essential (primary) hypertension Complete Blood Count Auto Diff Today E11.9 - Type 2 diabetes mellitus without complications, E78.5 - Hyperlipidemia, unspecified, I10 - Essential (primary) hypertension Hemoglobin A1c Today E11.9 - Type 2 diabetes mellitus without complications, E78.5 - Hyperlipidemia, unspecified, I10 - Essential (primary) hypertension Lipid Panel Today E11.9 - Type 2 diabetes mellitus without complications, E78.5 - Hyperlipidemia, unspecified, I10 - Essential (primary) hypertension Liver Panel Today E11.9 - Type 2 diabetes mellitus without complications, E78.5 - Hyperlipidemia, unspecified, I10 - Essential (primary) hypertension Microalbumin, Random (w Creat) Today E11.9 - Type 2 diabetes mellitus without complications, E78.5 - Hyperlipidemia, unspecified, I10 - Essential (primary) hypertension
[2024-10-07 10:58] VITALS: BP 134/62; PULSE 60; RESP 18; TEMP 36.8; O2SAT 99; BMI 28.1
--- OUTSIDE RECORDS SUMMARY | 2024-10-07 11:41 | XMS_ITS | Patient Health Record ---
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 Name Role Phone Sharath (RETIRED) Cash WARNER Primary Care Provider Unavailable Jm Malone Unavailable [phone] Reason For Referral No Information Medications Medication SIG (Take, Route, Frequency, Duration) Notes Start Date End Date Status Omeprazole 20mg Acti ve Simvastatin 40mg Act linda Aspir-81 81mg Active metFORMIN HCl 500mg Active Fish Oil 1000mg Not- Taking Atenolol 50mg Active Centrum Silver Activ e Suprep Bowel Prep 1 kit as directed Oral ly as directed for 1 dose 01/24/2014 Active Problems Problem Type SNOMED Code ICD Code Onset Dates Problem Status W/U Status Risk Notes Problem Anne's esophagus (258034047) 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) Active confirmed Problem Colon cancer screening (040099843) Colon cancer screening (V76.51) Active confirmed Problem Gastroesophageal reflux disease (392787719) GERD (gastroesophag eal reflux disease) (530.81) Active confirmed Problem History of polyp of colon (situation) (107029250) History of colon polyps (V12.72) Active confirmed Problem History of polyp of colon (270805930) H/O adenomatous polyp of colon (V12.72) Active confirmed Plan Of Treatment Future Test Test Name Order Date COLONOSCOPY 01/24/2014 Insurance Providers Payer Name Payer Address Payer Phone Subscriber Number Group Number Insured Name Patient Relationship to Insured Coverage Start Date Coverage End Date [facility] [address] [place] [phone] [id number] DAVID YANES Self - patient is the insured Medical (General) History Medical History History ICD Code Anne's esophagus-EGD in -neg. dysplasia, small HH--he had an upper endoscopy in January 2012 with the finding of a minimal hiatal hernia and at that time biopsies were negative for any Anne's esophagus--there was no esophagitis Tubular adenomas removed in 2004---last colonoscopy in 10/2008 was neg. except for a hyperplastic polyp, sigmoid diverticulosis, and internal hemorrhoids GERD CAD--no [place]-2V CABG Hyperlipidemia NIDDM Denies [place],CVA, Lung disease,renal diseas e Surgical History Surgery Date(Month/Year) Back surgery Hernia surgery 2V CABG cholecystectomy 12/[address] Germain
--- OUTSIDE RECORDS SUMMARY | 2024-10-07 11:41 | XMS_ITS | Patient Health Record ---
Author Organization [facility] Deshaun adama Eduardo Address [address] [place] [address] Care Team Providers Care Pulp Mixer Name Role Phone Sharath WARNER, Cash Primary Care Provider Unavailab Jordan Aly Unavailable [phone] Allergies No Known Allergies Results Component Value [...] (HH) 7.2 HEMOGLOBIN A1C (GLYCOHEMOGLO BIN) Reviewed date:08/29/2024 04:04:49 PM Interpretation: Performing Lab: Notes/Report: HEMOGLOBIN A1C % (HH) 7.2 Reason For Referral No Information Medications Medication SIG (Take, Route, Frequency, Duration) Notes Start Date End Date Status Centrum Silver Activ e Magnesium Citrate Ac tive amLODIPine Besylate 5 MG 1 tablet Orally Once a day Active Aspir-81 Active metFORMIN HCl 1000 MG 1 tablet with a me al Orally Once a day Active Atorvastatin Calcium 80 MG 1 tablet Oral ly Once a day Active Extra Depth Orthopedic Shoes, (1) Pair With (3) Pair Custom Heat Molded Multidensity Innersoles Dx: NIDDM/PVD(E11.51), Hammertoe Foot Deformity(M20.41,M20.42), Preulcerative Skin Lesion(s)(L85.1) Wear Daily; Duration: 365 days 03/25/2024 Active Omeprazole 20 MG 1 capsule 1/2 to 1 h our before morning meal Orally Once a day Active Terbinafine HCl 1 % 1 application [employer] ally Once a day; Duration: 30 days 07/11/2024 Active Hydrocortisone 2.5 % 1 application Exter jessica to affected areas of itching irritated skin on foot/feet Twice a day; Duration: 30 days Active Probiotic Active Immunizations Vaccine Route Administration Date Status Comme nts Influenza Unknown 11/14/2023 Administered Social History Tobacco Use: Social History Observation [...] Problem Acquired hammer toe of right foot (0339564341564 105) Other hammer toe(s) (acquired), right foot (M20.41) Active confirmed Problem Acquired hammer toe of left foot (9659462387234 103) Other hammer toe(s) (acquired), left foot (M20.42) Active confirmed Problem Type 2 diabetes mellitus with peripheral angiopathy (223066140) Type 2 diabetes mellitus with diabetic peripheral angiopathy without gangrene (E11.51) Active confirmed Q7(A), Q8(2B), Q9(1B,2C) Vital Signs Blood pressure diastolic 70 mm Hg 07/11/2024 Height 5ft 8in in 08/29/2024 Blood pressure systolic 130 mm Hg 07/11/2024 Weight 185 lbs 08/29/2024 BMI 28.13 kg/m2 08/29/2024 Procedures Procedure Date Ordered Date Performed Result Body Sit e 01851-GTDHWTO NAIL, 1-5 03/25/2024 N/A 35693-TTKN SKIN LESIONS, 2 TO 4 03/25/2024 N/A Z6983-OXNUXAGY DYSTROPHIC NAILS ANY # 03/25/2024 N/A 09740-BKTSRLE NAIL, 1-5 06/05/2024 N/A 65515-ACUO SKIN LESIONS, 2 TO 4 06/05/2024 N/A K3590-CAKFHCVM DYSTROPHIC NAILS ANY # 06/05/2024 N/A 71133-BOYPCWG NAIL, 1-5 08/29/2024 N/A 14464-PIEV SKIN LESIONS, 2 TO 4 08/29/2024 N/A D2022-RLKVZXKK DYSTROPHIC NAILS ANY # 08/29/2024 N/A Encounters Encounter Location Date Provider Diagnosis [address] [address] 03/25/2024 Jordan Cassidy Type 2 diabetes mellitus with diabetic peripheral angiopathy without gangrene E11.51 ; Tinea unguium B35.1 ; Pain in right toe(s) M79.674 ; Pain in left toe(s) M79.675 ; Other hammer toe(s) (acquired), left foot M20.42 and Other hammer toe(s) (acquired), right foot M20.[address] [address] 06/05/2024 Jordan Cassidy Type 2 diabetes mellitus with diabetic peripheral angiopathy without gangrene E11.51 ; Tinea unguium B35.1 ; Pain in right toe(s) M79.674 ; Pain in left toe(s) M79.675 and Tinea pedis of both feet B35.[address] [address] 07/11/2024 Jordan Cassidy Tinea pedis of both feet B35.3 and Nummular eczematous dermatitis L30.[address] [address] 08/29/2024 Jordan Cassidy Type 2 diabetes mellitus with diabetic peripheral angiopathy without gangrene E11.51 ; Tinea unguium B35.1 ; Pain in right toe(s) M79.674 ; Pain in left toe(s) M79.675 ; Tinea pedis of both feet B35.3 ; Other hammer toe(s) (acquired), left foot M20.42 and Other hammer toe(s) (acquired), right foot M20.41 [facility] [address] [address] 06/11/2024 [facility] [address] 06/12/2024 Jordan Cassidy Assessments Encounter Date Diagnosis [...] 07/11/2024 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) 08/29/2024 Tinea unguium (ICD-10 - B35.1) 08/29/2024 Type 2 diabetes mellitus with diabetic peripheral angiopathy without gangrene (ICD-10 - E11.51) Q7(A), Q8(2B), Q9(1B,2C) 08/29/2024 Pain in right toe(s) (ICD-10 - M79.674) 06/05/2024 Pain in right toe(s) (ICD-10 - M79.674) 03/25/2024 Tinea unguium (ICD-10 - B35.1) 03/25/2024 Pain in right toe(s) (ICD-10 - M79.674) 06/05/2024 Pain in left toe(s) (ICD-10 - M79.675) 08/29/2024 Pain in left toe(s) (ICD-10 - M79.675) 06/05/2024 Tinea pedis of both feet (ICD-10 - B35.3) 03/25/2024 Pain in left toe(s) (ICD-10 - M79.675) 08/29/2024 Tinea pedis of both feet (ICD-10 - B35.3) 03/25/2024 Other hammer toe(s) (acquired), left foot (ICD-10 - M20.42) 08/29/2024 Other hammer toe(s) (acquired), left foot (ICD-10 - M20.42) 08/29/2024 Other hammer toe(s) (acquired), right foot (ICD-10 - M20.41) 03/25/2024 Other hammer toe(s) (acquired), right foot (ICD-10 - M20.41) Patient Educated with: DIABETIC FOOT CARE INSTRUCTIONS.p df (DIABETIC FOOT CARE INSTRUCTIONS.p df) Plan Of Treatment Pending Test Test Name Order Date 38216-JUROJCU NAIL, 1-5 08/29/2024 16848-EECKCVY NAIL, 1-5 03/25/2024 56044-YOHLEJP NAIL, 1-5 06/05/2024 74327-UBMZ SKIN LESIONS, 2 TO 4 06/06/19 25 61031-TGKY SKIN LESIONS, 2 TO 4 03/25/19 25 96054-WJEA SKIN LESIONS, 2 TO 4 08/30/19 25 P7865-EGRXSOAF DYSTROPHIC NAILS ANY # H1815-INOYZJBR DYSTROPHIC NAILS ANY # B1638-PQESWKUQ DYSTROPHIC NAILS ANY # Next Appt Details Provider Name:Jordan Cassidy , 12/26/2024 11:00:00 AM, [address] [facility] [address], [place], [address], Insurance Providers Payer Name Payer Address Payer Phone Subscriber Number Group Number Insured Name Patient Relationship to Insured Coverage Start Date Coverage End Date [facility] [address] [facility] [place] [address] [id number] Vance Flowers Self - patient is the insured 4 Medical (General) History Medical History History ICD Code Diabetic High Blood Pressure Hypercholesterolemia Reflux
== END 2024-10-07 11:22 | disposition home or self-care (01) ==
LOC: HO.HMCHD 10:33
PROVIDERS: PCP Family Medicine; Visit Provider Physician Assistant
DX: I25.10 Atherosclerotic heart disease of native coronary artery without angina pectoris (principal); I10 Essential (primary) hypertension; E78.5 Hyperlipidemia, unspecified; E11.21 Type 2 diabetes mellitus with diabetic nephropathy

== ENCOUNTER → 2024-10-07 10:30 | Outpatient (BNVA) | payer OTHER, SELFPAY | PROVIDERS: PCP Family Medicine; Visit Provider Physician Assistant | DX: I25.10 Atherosclerotic heart disease of native coronary artery without angina pectoris (principal); I10 Essential (primary) hypertension; E78.5 Hyperlipidemia, unspecified; E11.21 Type 2 diabetes mellitus with diabetic nephropathy; Z95.1 Presence of aortocoronary bypass graft; Z79.82 Long term (current) use of aspirin; Z79.899 Other long term (current) drug therapy; Z13.31 Encounter for screening for depression; Z13.39 Encounter for screening examination for other mental health and behavioral disorders | CPT/HCPCS: 96127 ==

== ENCOUNTER 2025-01-07 09:28 | Outpatient (AMB) | payer OTHER, SELFPAY ==
--- NOTE | 2025-01-07 09:34 | A.OFFPC_ITS ---
Vital Signs 01/07/25 09:47 01/07/25 10:10 Height 5 ft 6.38 in Weight 84.368 kg BMI 29.7 BP 150/68 H 120/62 Blood Pressure Location Rt brachial Position Sitting Respiration 20 Pulse 57 Pulse Source Pulse Oximeter Temp 97.7 F Temp Source Temporal Artery Scan Pulse Oximetry (%) 97 Oxygen Delivery Method Room Air Intake Visit Reasons: 3 month f/u Stripe Marker Required: No Accompanied by: Spouse Allergies No Known Allergies (No Known Allergies*) Allergy (Verified 01/07/25 09:35) Medication List - Last Reconciled 01/07/25 by MUKESH Cohen amlodipine 10 mg PO DAILY ammonium lactate 12% appl topical aspirin (Adult Low Dose Aspirin) 81 mg PO DAILY atorvastatin 80 mg PO DAILY blood sugar diagnostic (FreeStyle Lite Strips) once a day blood-glucose meter (FreeStyle Lite Meter kit) As directed hydrocortisone 2.5% appl topical BID lancets (FreeStyle Lancets) once a day metformin 1,000 mg PO DAILY 90 days omeprazole 20 mg PO BID terbinafine HCl 1% (Athlete's Foot (terbinafine)) appl topical DAILY Tobacco use date assessed: 10/07/24 Dental Screening Dental Screen Date: 10/07/24 HPI HPI Comments History of Present Illness Details Prefers [place] 84-year-old male with history of hyperte nsion, hypercholesterolemia, obstructive sleep apnea, coronary artery disease, cervical spondylosis, type 2 diabetes, GERD, CKD stage 3 presents to the office today for management of chronic conditions. Accompanied by his , Patricia. SILVANA- no longer wearing cpap. Still some snoring, no apnea. Hypertension-BP 134/62. On amlodipine 10 mg daily Hx prostate cancer- Follows with Dr. Ramon, Urology [facility]. No chemo, radiation, or surgery. PSA increasing, now 68. Following again in 3 months with Uro. No LUTS CAD/HTN/HLD- s/p CABG x2 2022. On ASA, statin. Follows with Dr. [facility] Cardiology Type 2 diabetes-last A1c 6.9%, overdue. on metformin 1000mg daily. Compliant with diet. POC fasting average 150, fasting 145 this morning. Eye exams UTD, no issues, sees Sabiha Sosa. Complicated by polyneuropathy, not overly bothersome CKD stage 3-not following with Nephrology. Last GFR 43 consistent with baseline Concerns: Checking abd and poked L side with hurt more than normal. Didnt poke harder. No bruising. No n/v, BM regular/normal. Not worse with Valsalva Health maintenance: No longer undergoing screening colonoscopy PSA managed by Urology Flu shot up-to-date ROS: See HPI EXAM: Constitutional - Awake and Alert, No apparent distress Eyes - PERRL Cardiovascular - S1S2, RRR, No edema Respiratory - Normal lung expansion, Normal respiratory effort, No respiratory distress, CTA bilaterally ABD- soft, nontender, nondistended. BS x4. No bulges with valsava Extremities - no calf tenderness bilaterally, no swelling Skin - Warm/Dry Neurological - Alert & oriented x3 Psychological - Appropriate affect [facility] History (Updated 01/07/25 @ 10:21 by MUKESH Cohen) History of prostate cancer SILVANA (obstructive sleep apnea) Type 2 diabetes with nephropathy CAD (coronary artery disease) Non-toxic multinodular goiter Dyslipidemia Hypertension Diabetic polyneuropathy associated with type 2 diabetes mellitus Controlled type 2 diabetes mellitus Surgical History (Updated 10/03/24 @ 16:43 by Dayana Adamson) History of esophagogastroduodenoscopy (EGD) Hx of colonoscopy (~04/14/14) History of back surgery Hx of hernia repair Family History Father No problems noted. Mother Gastric cancer Social History Housing: House Alcohol intake: current Alcohol intake frequency: holidays/special occasions only Patient Tobacco Use Status: Never used Tobacco e-Cigarette/Vaping Use: Never Used service: No Current occupational status: retired Cognitive needs: No Hearing needs: No Vision needs: No Questionnaire Thrive Questionnaire Date Thrive assessed: 10/07/24 AUDIT C Alcohol Use Questionnaire (AUDIT-C) 1. How often do you have a drink containing alcohol?: 2-4 times a month 2. How many drinks containing alcohol do you have on a typical day when you are drinking?: 1 or 2 3. How often do you have six or more drinks on one occasion?: Never Total Score: 2 KRISTIN-7 AMB Questionnaire KRISTIN-7 Date KRISTIN - 7 assessed: 10/07/24 Source: Developed by Drs. Jm Verdugo, Olive Perez, Lester Rojas and colleagues, with an educational vini from [employer]. Physical exam (Primary Care) Vital Signs: Last Vital Signs Temp 97.7 F 01/07/25 09:47 Pulse 57 01/07/25 09:47 Resp 20 01/07/25 09:47 BP 150/68 H 01/07/25 09:47 Pulse Ox 97 01/07/25 09:47 Oxygen Delivery Method Room Air 01/07/25 09:47 BMI result Body Mass Index 29.7 Tobacco/Smoking Status: Tobacco use Status Tobacco use date assessed 10/07/24 01/07/25 09:35 Patient Tobacco Use Status Never used Tobacco 01/07/25 09:35 e-Cigarette/Vaping Use Never Used 01/07/25 09:35 Thrive Assessment: Date of Thrive Assessment Date Thrive assessed 10/07/24 01/07/25 09:35 Coding Level of Care Code Est Pt Level 4 (30402) Complex visit Add On G2211 Diagnoses CAD (coronary artery disease) I25.10 Hypertension I10 Dyslipidemia E78.5 Controlled type 2 diabetes mellitus E11.9 Type 2 diabetes with nephropathy E11.21 History of prostate cancer Z85.46 Assessment & Plan Assessment & Plan (1) CAD (coronary artery disease): Comment: s/p CABG x 2 2022, [facility] cards Code(s): I25.10 - Atherosclerotic heart disease of [place] coronary artery without angina pectoris Category: Medical Plan: Stable. Continue following with Cardiology. Continue ASA, statin. (2) Hypertension: Code(s): I10 - Essential (primary) hypertension Category: Medical Plan: Controlled. Continue amlodipine 10 mg (3) Dyslipidemia: Code(s): E78.5 - Hyperlipidemia, unspecified Category: Medical Plan: Lipid panel ordered. Continue statin (4) Controlled type 2 diabetes mellitus: Code(s): E11.9 - Type 2 diabetes mellitus without complications Category: Medical Plan: Hemoglobin A1c ordered. Continue metformin, diabetic diet. Continue annual eye exams which are up-to-date (5) Type 2 diabetes with nephropathy: Code(s): E11.21 - Type 2 diabetes mellitus with diabetic nephropathy Category: Medical Plan: BMP ordered to evaluate renal function electrolyte levels. Management of diabetes as above (6) History of prostate cancer: Comment: Dr. Ramon. Most recent PSA significantly elevated >60. Surveillance for now with close following every 3 months. No LUTS Code(s): Z85.46 - Personal history of malignant neoplasm of prostate Category: Medical Plan Follow-up in the office in 3 months. Labs to be completed following visit today as well as several days prior to next visit Orders: Orders RT home sleep study Today G47.33 - Obstructive sleep apnea (adult) (pediatric) Basic Metabolic Panel Today E11.21 - Type 2 diabetes mellitus with diabetic nephropathy, I10 - Essential (primary) hypertension Hemoglobin A1c Today E11.21 - Type 2 diabetes mellitus with diabetic nephropathy, I10 - Essential (primary) hypertension Complete Blood Count Auto Diff 3 Months E11.21 - Type 2 diabetes mellitus with diabetic nephropathy, E78.5 - Hyperlipidemia, unspecified, I10 - Essential (primary) hypertension, I25.10 - Atherosclerotic heart disease of [place] coronary artery without angina pectoris Lipid Panel 3 Months E11.21 - Type 2 diabetes mellitus with diabetic nephropathy, E78.5 - Hyperlipidemia, unspecified, I10 - Essential (primary) hypertension, I25.10 - Atherosclerotic heart disease of [place] coronary artery without angina pectoris Microalbumin, Random (w Creat) Today E11.21 - Type 2 diabetes mellitus with diabetic nephropathy, I10 - Essential (primary) hypertension Basic Metabolic Panel 3 Months E11.21 - Type 2 diabetes mellitus with diabetic nephropathy, E78.5 - Hyperlipidemia, unspecified, I10 - Essential (primary) hypertension, I25.10 - Atherosclerotic heart disease of [place] coronary artery without angina pectoris Hemoglobin A1c 3 Months E11.21 - Type 2 diabetes mellitus with diabetic nephropathy, E78.5 - Hyperlipidemia, unspecified, I10 - Essential (primary) hypertension, I25.10 - Atherosclerotic heart disease of [place] coronary artery without angina pectoris Liver Panel 3 Months E11.21 - Type 2 diabetes mellitus with diabetic nephropathy, E78.5 - Hyperlipidemia, unspecified, I10 - Essential (primary) hypertension, I25.10 - Atherosclerotic heart disease of [place] coronary artery without angina pectoris Medications: Refilled blood sugar diagnostic (FreeStyle Lite Strips) once a day 100 ea 3RF E11.9 - Type 2 diabetes mellitus without complications
[2025-01-07 09:47] VITALS: BP 150/68; PULSE 57; RESP 20; TEMP 36.5; O2SAT 97; BMI 29.7
[2025-01-07 10:10] VITALS: BP 120/62
== END 2025-01-07 10:18 | disposition home or self-care (01) ==
LOC: HO.HMCHD 09:28
PROVIDERS: PCP Family Medicine; Visit Provider Physician Assistant
DX: I25.10 Atherosclerotic heart disease of native coronary artery without angina pectoris (principal); I10 Essential (primary) hypertension; E78.5 Hyperlipidemia, unspecified; E11.21 Type 2 diabetes mellitus with diabetic nephropathy; Z85.46 Personal history of malignant neoplasm of prostate

== ENCOUNTER 2025-01-07 10:22 | Outpatient (REF) | payer OTHER, SELFPAY ==
[2025-01-07 13:50] LABS: Microalbum/Creatinine Ratio Ur 89.2 ug/mg cr (<30)
[2025-01-07 14:08] LABS: Anion Gap 10 (12-20); Blood Urea Nitrogen 25 mg/dL (9-16); Calcium 9.7 mg/dL (8.4-10.2); Carbon Dioxide 28 mmol/L (22-29); Chloride 105 mmol/L (96-108); Estimated Glomerular Filt Rate 51; Potassium 4.4 mmol/L (3.3-5.1); Sodium 139 mmol/L (135-145)
== END 2025-01-07 10:23 | disposition home or self-care (01) ==
LOC: HO.10HDL 10:22
PROVIDERS: Visit Provider Physician Assistant
DX: I10 Essential (primary) hypertension (principal); E11.21 Type 2 diabetes mellitus with diabetic nephropathy
CPT/HCPCS: 36415; 80048; 82043; 82570; 83036

== ENCOUNTER 2025-02-10 11:10 | Outpatient (AMB) | payer OTHER, SELFPAY ==
--- NOTE | 2025-02-10 11:18 | HO.NEPHOV_ITS ---
Vital Signs 02/10/25 11:19 Height 5 ft 6 in Weight 188 lb BMI 30.3 BP 142/66 H Blood Pressure Location Lt brachial Position Sitting Pulse 66 Pulse Source Pulse Oximeter Pulse Oximetry (%) 98 Oxygen Delivery Method Room Air Intake Visit Reasons: INP Diabetes mellitus w/ diabetic nephropathy Mixed Animal Veterinarian Required: No Accompanied by: Self / Same As Patient Allergies No Known Allergies (No Known Allergies*) Allergy (Verified 02/10/25 11:21) HPI Comments Details: A year old gentleman with PMH of CKD 3 hypertension, diabetes mellitus, CAD, SILVANA, GERD is here for evaluation of proteinuria. Hypertension: For past 5 years, On amlodipine 10mg Diabetes mellitus: FOr about 10 years , on metformin 1000 mg b.i.d. CAD: had a double bypass 20 years ago; On aspirin and atorvastatin [facility] Medical History (Updated 02/10/25 @ 11:39 by Connor Lynn MD) Microalbuminuria History of prostate cancer SILVANA (obstructive sleep apnea) Type 2 diabetes with nephropathy CAD (coronary artery disease) Non-toxic multinodular goiter Dyslipidemia Hypertension Diabetic polyneuropathy associated with type 2 diabetes mellitus Controlled type 2 diabetes mellitus Surgical History History of esophagogastroduodenoscopy (EGD) Hx of colonoscopy (~04/14/14) History of back surgery Hx of hernia repair Family History Father No problems noted. Mother Gastric cancer Social History Housing: House Alcohol intake: current Alcohol intake frequency: holidays/special occasions only Patient Tobacco Use Status: Never used Tobacco e-Cigarette/Vaping Use: Never Used service: No Current occupational status: retired Cognitive needs: No Hearing needs: No Vision needs: No Review of Systems Const Details: Const : no body aches, no chills, no excessive sweating and no fatigue Eyes: no blurry vision and no change in vision ENT: no bleeding gums and no change in voice, no dizziness Card: no chest pain, no shortness of breath, no orthopnea, no PND Resp: no cough, no excessive phlegm production, no SOB GI: no abdominal pain and no nausea, no vomiting : no hematuria, no urinary frequency and no difficulty voiding Musc: no abnormal gait, no bone pain Neuro: no abnormal movements, no weakness, no dizziness Psych: no behavioral changes and no change in appetite Endo: no change in body appearance, no cold intolerance, no excessive sweating and no fatigue Physical Exam Vital Signs: Last Vital Signs Pulse 66 02/10/25 11:19 BP 142/66 H 02/10/25 11:19 Pulse Ox 98 02/10/25 11:19 Oxygen Delivery Method Room Air 02/10/25 11:19 BMI result Body Mass Index 30.3 General: not in any acute distress, ill appearing Nutritional Appearance: well nourished and overweight Eyes: appearance normal, both eyes and all related structures Neck: No lymphadenopathy, no thyromegaly Resp: bilateral air entry equal, no added sounds present Cardio: Regular rate, regular rhythm; Heart sounds: S1 normal heart sound present and S2 normal heart sound present GI: soft, nontender, no guarding, no hepatosplenomegaly : bladder normal to inspection, bladder normal to palpation, no renal angle tenderness Skin: no rashes or lesions noted and elasticity normal Neuro: alert, oriented x 3, moves all extremities Results Reviewed Nephrology Results: Hgb, (14.0-18.0) 13.7 g/dl L 01/18/24 WBC, (4.8-10.8) 8.0 X10*3/uL 01/18/24 Plt Count, (160-400) 270 X10*3/uL 01/18/24 Sodium, (135-145) 139 mmol/L 01/07/25 Potassium, (3.3-5.1) 4.4 mmol/L 01/07/25 Chloride, (96-108) 105 mmol/L 01/07/25 Carbon Dioxide, (22-29) 28 mmol/L 01/07/25 BUN, (9-16) 25 mg/dL H 01/07/25 Creatinine, (0.5-1.4) 1.33 mg/dL 01/07/25 Calcium, (8.4-10.2) 9.7 mg/dL 01/07/25 Urine Creatinine 104.21 mg/dL 01/07/25 Assessment & Plan Assessment & Plan (1) Microalbuminuria: Code(s): R80.9 - Proteinuria, unspecified Category: Medical (2) Type 2 diabetes with nephropathy: Code(s): E11.21 - Type 2 diabetes mellitus with diabetic nephropathy Category: Medical (3) Chronic kidney disease: Code(s): N18.9 - Chronic kidney disease, unspecified Category: Medical Plan Chronic kidney disease stageIII A2 : Possibly secondary to diabetic kidney disease, however the affect of SILVANA and obesity can not be completely ruled out - no family history of CKD, no history of renal stones in the past, NSAID use. - creatinine stable around 1.33 , GFR 51 - urine microalbumin creatinine ratio: 89.2 UPCR: - we will get urinalysis - no Renal imaging so far - avoid nephrotoxic medications not limited to NSAIDs, contrast etc. - importance of LPD protein about 0.6mg/kg/day, benefits of plant based diet, weight loss, adequate blood pressure control, stop smoking well explained to patient. Also explained him that losing weight would help - will get hepatitis panel, HIV, SPEP, UPEP, serum free light chains,serum immunofixation in 3 months as he has some anemia with hemoglobin of 13.7 Hypertension: - target blood pressures less than 130/90 mm Hg - blood pressure is slightly on higher side - we will discontinue amlodipine and switch to losartan 25 mg - has some prostrate symtpoms seeing a urologist in a month, will prescribe tamsulosin. This note is constructed using voice recognition software. While every effort has been made to ensure accuracy alterations sewer errors may have been included. Total time spent in the clinic is about 35 minutes, 10 minutes on chart review, review of data, 15 minutes on encounter, physical examination, counseling, answering all the questions, 10 minutes on documentation. Orders: Orders Hepatitis B,C Profile 3 Months N18.9 - Chronic kidney disease, unspecified, R80.9 - Proteinuria, unspecified HIV Ab/Ag 3 Months N18.9 - Chronic kidney disease, unspecified, R80.9 - Proteinuria, unspecified Protein Electrophoresis, Serum 3 Months N18.9 - Chronic kidney disease, unspecified, R80.9 - Proteinuria, unspecified Basic Metabolic Panel 3 Months N18.9 - Chronic kidney disease, unspecified, R80.9 - Proteinuria, unspecified UA and rflx microscopic 3 Months N18.9 - Chronic kidney disease, unspecified, R80.9 - Proteinuria, unspecified Complete Blood Count no Diff 3 Months N18.9 - Chronic kidney disease, unspecified, R80.9 - Proteinuria, unspecified Vitamin D 25-OH Total 3 Months N18.9 - Chronic kidney disease, unspecified, R80.9 - Proteinuria, unspecified Protein Electrophoresis,Ran Ur 3 Months N18.9 - Chronic kidney disease, unspecified, R80.9 - Proteinuria, unspecified Immunofixation Pnl, Serum 3 Months N18.9 - Chronic kidney disease, unspecified, R80.9 - Proteinuria, unspecified [place]/Lambda Light Chain Serum 3 Months N18.9 - Chronic kidney disease, unspecified, R80.9 - Proteinuria, unspecified Microalbumin, Random (w Creat) 3 Months N18.9 - Chronic kidney disease, unspecified, R80.9 - Proteinuria, unspecified Protein Creatinine Ratio, Ur 3 Months N18.9 - Chronic kidney disease, unspecified, R80.9 - Proteinuria, unspecified Parathyroid Hormone Intact 3 Months N18.9 - Chronic kidney disease, unspecified, R80.9 - Proteinuria, unspecified Medications: New losartan 25 mg PO DAILY 30 tabs 5RF tamsulosin 0.4 mg PO BEDTIME 30 caps 5RF Coding Level of Care Code New Pt Level 4 (99777) Diagnoses Microalbuminuria R80.9 Type 2 diabetes with nephropathy E11.21 Chronic kidney disease N18.9
[2025-02-10 11:19] VITALS: BP 142/66; PULSE 66; O2SAT 98; BMI 30.3
--- OUTSIDE RECORDS SUMMARY | 2025-02-10 13:09 | XMS_ITS | Patient Health Record ---
Author Organization [facility] Deshaun adama [place] Address [address] [place] [address] Care Team Providers Care Seismograph Helper Name Role Phone Sharath WARNER, Cash Primary Care Provider Unavailab Jordan Aly Unavailable [phone] Allergies No Known Allergies Results Component Value Reference Range Notes HEMOGLOBIN A1C (GLYCOHEMOGLO BIN) Reviewed date:07/11/2024 03:11:19 PM Interpretation: Performing Lab: Notes/Report: HEMOGLOBIN A1C % (HH) 7.2 HEMOGLOBIN A1C (GLYCOHEMOGLO BIN) Reviewed date:06/05/2024 10:40:14 AM Interpretation: Performing Lab: Notes/Report: HEMOGLOBIN A1C % (HH) 7.2 HEMOGLOBIN A1C (GLYCOHEMOGLO BIN) Reviewed date:12/26/2024 10:57:19 AM Interpretation: Performing Lab: Notes/Report: HEMOGLOBIN A1C % (HH) 7.2 HEMOGLOBIN A1C (GLYCOHEMOGLO BIN) Reviewed date:08/29/2024 04:04:49 PM Interpretation: Performing Lab: Notes/Report: HEMOGLOBIN A1C % (HH) 7.2 Reason For Referral No Information Medications Medication SIG (Take, Route, Frequency, Duration) Notes Start Date End Date Status Probiotic Active Ammonium Lactate 12 % 1 application Exte rnally to affected areas of dry skin to feet except for between the toes Twice a day; Duration: 30 days Active Terbinafine HCl 1 % 1 application Double Needle Stitcher ally Once a day; Duration: 30 days 07/11/2024 Active Hydrocortisone 2.5 % 1 application Exter jessica to affected areas of itching irritated skin on foot/feet Twice a day; Duration: 30 days Active Extra Depth Orthopedic Shoes, (1) Pair [...] tablet Oral ly Once a day Active amLODIPine Besylate 5 MG 1 tablet Orally Once a day Active Aspir-81 Active Centrum Silver Activ e Magnesium Citrate Ac tive Immunizations Vaccine Route Administration Date Status Comme [...] Problem Acquired hammer toe of right foot (1420506515961 105) Other hammer toe(s) (acquired), right foot (M20.41) Active confirmed Problem Acquired hammer toe of left foot (0333916571274 103) Other hammer toe(s) (acquired), left foot (M20.42) Active confirmed Problem Type 2 diabetes mellitus with peripheral angiopathy (664153709) Type 2 diabetes mellitus with diabetic peripheral angiopathy without gangrene (E11.51) Active confirmed Q7(A), Q8(2B), Q9(1B,2C) Vital Signs Blood pressure diastolic 70 mm Hg 12/26/2024 Height 5ft 8in in 12/26/2024 Blood pressure systolic 130 mm Hg 12/26/2024 Weight 185 lbs 12/26/2024 BMI 28.13 kg/m2 12/26/2024 Procedures Procedure Date Ordered Date Performed Result Body Sit e 12297-RAQGQDL NAIL, 1-5 03/25/2024 N/A 38162-ESGY SKIN LESIONS, 2 TO 4 03/25/2024 N/A O1963-WBZLVZPB DYSTROPHIC NAILS ANY # 03/25/2024 N/A 72200-EAYOQTR NAIL, 1-5 06/05/2024 N/A 11103-TXKT SKIN LESIONS, 2 TO 4 06/05/2024 N/A E8480-JXOWCBJJ DYSTROPHIC NAILS ANY # 06/05/2024 N/A 32046-GILGWTN NAIL, 1-5 08/29/2024 N/A 30481-JRVY SKIN LESIONS, 2 TO 4 08/29/2024 N/A H5273-HKASVMHQ DYSTROPHIC NAILS ANY # 08/29/2024 N/A 23955-HMYMRRE NAIL, 1-5 12/26/2024 N/A 50158-ZQIY SKIN LESIONS, 2 TO 4 12/26/2024 N/A N7894-QPAOKSDZ DYSTROPHIC NAILS ANY # 12/26/2024 N/A Encounters Encounter Location Date [facility] [address] 03/25/2024 Jordan Ange Type 2 diabetes mellitus with diabetic peripheral angiopathy without gangrene E11.51 ; Tinea unguium B35.1 ; Pain in right toe(s) M79.674 ; Pain in left toe(s) M79.675 ; Other hammer toe(s) (acquired), left foot M20.42 and Other hammer toe(s) (acquired), right foot M20.[address] [facility] [address] 06/05/2024 Jordan Ange Type 2 diabetes mellitus with diabetic peripheral angiopathy without gangrene E11.51 ; Tinea unguium B35.1 ; Pain in right toe(s) M79.674 ; Pain in left toe(s) M79.675 and Tinea pedis of both feet B35.3 [place] [address] [address] 07/11/2024 Jordan Cassidy Tinea pedis of both feet B35.3 and Nummular eczematous dermatitis L30.[address] [address] 08/29/2024 Jordan Cassidy Type 2 diabetes mellitus with diabetic peripheral angiopathy without gangrene E11.51 ; Tinea unguium B35.1 ; Pain in right toe(s) M79.674 ; Pain in left toe(s) M79.675 ; Tinea pedis of both feet B35.3 ; Other hammer toe(s) (acquired), left foot M20.42 and Other hammer toe(s) (acquired), right foot M20.[address] [address] 12/26/2024 Jordan Cassidy Type 2 diabetes mellitus with diabetic peripheral angiopathy without gangrene E11.51 ; Tinea unguium B35.1 ; Pain in right toe(s) M79.674 ; Pain in left toe(s) M79.675 and Xerosis of skin L85.[address] [address] 06/11/2024 Jordan Cassidy [address] [address] 06/12/2024 Jordan Cassidy Assessments Encounter Date Diagnosis [...] gangrene (ICD-10 - E11.51) Q7(A), Q8(2B), Q9(1B,2C) 12/26/2024 Tinea unguium (ICD-10 - B35.1) 12/26/2024 Type 2 diabetes mellitus with diabetic peripheral angiopathy without gangrene (ICD-10 - E11.51) Q7(A), Q8(2B), Q9(1B,2C) 12/26/2024 Pain in right toe(s) (ICD-10 - M79.674) 08/29/2024 Pain in right toe(s) (ICD-10 - M79.674) 06/05/2024 Pain in right toe(s) (ICD-10 - M79.674) 03/25/2024 Tinea unguium (ICD-10 - B35.1) 03/25/2024 Pain in right toe(s) (ICD-10 - M79.674) 06/05/2024 Pain in left toe(s) (ICD-10 - M79.675) 08/29/2024 Pain in left toe(s) (ICD-10 - M79.675) 06/05/2024 Tinea pedis of both feet (ICD-10 - B35.3) 03/25/2024 Pain in left toe(s) (ICD-10 - M79.675) 12/26/2024 Pain in left toe(s) (ICD-10 - M79.675) 08/29/2024 Tinea pedis of both feet (ICD-10 - B35.3) 12/26/2024 Xerosis of skin (ICD-10 - L85.3) 03/25/2024 Other hammer toe(s) (acquired), left foot (ICD-10 - M20.42) 08/29/2024 Other hammer toe(s) (acquired), left foot (ICD-10 - M20.42) 08/29/2024 Other hammer toe(s) (acquired), right foot (ICD-10 - M20.41) 03/25/2024 Other hammer toe(s) (acquired), right foot (ICD-10 - M20.41) Patient Educated with: DIABETIC FOOT CARE INSTRUCTIONS.p df (DIABETIC FOOT CARE INSTRUCTIONS.p df) Plan Of Treatment Pending Test Test Name Order Date 89159-ATQYBXL NAIL, 1-5 03/25/2024 35792-ENYVTLI NAIL, 1-06/05/2024 44613-RUIORDV NAIL, 1-5 08/29/2024 85636-LFXBJLU NAIL, 1-5 12/26/2024 28078-LWUC SKIN LESIONS, 2 TO 4 12/27/19 22843-BSSH SKIN LESIONS, 2 TO 4 08/30/19 41008-VKWZ SKIN LESIONS, 2 TO 4 06/06/19 02766-GGDT SKIN LESIONS, 2 TO 4 03/25/19 L0372-VSXYLSER DYSTROPHIC NAILS ANY # R1518-XBPSXQHW DYSTROPHIC NAILS ANY # K5936-VZQEOXQV DYSTROPHIC NAILS ANY # T7316-SGXRMRWH DYSTROPHIC NAILS ANY # Next Appt Details Provider Name:Jordan Cassidy , 04/07/2025 09:30:00 AM, [address] [facility] [address], [place], [address], Insurance Providers Payer Name Payer Address Payer Phone Subscriber Number Group Number Insured Name Patient Relationship to Insured Coverage Start Date Coverage End Date [facility] [address] [place] [address] [id number] Vance Berrios Self - patient is the insured Medical (General) History Medical History History ICD Code Diabetic High Blood Pressure Hypercholesterolemia Reflux
--- OUTSIDE RECORDS SUMMARY | 2025-02-10 13:09 | XMS_ITS | Patient Health Record ---
Author Organization [facility] Address [address] [place] [address] Care Team Providers Care Hearing Therapy Teacher Name Role Phone Sharath (RETIRED) Cash WARNER Primary Care Provider Unavailable Jm Malone Unavailable [phone] Reason For Referral No Information Medications Medication SIG (Take, Route, Frequency, Duration) Notes Start Date End Date Status Omeprazole 20mg Acti ve Simvastatin 40mg Act linda Aspir-81 81mg Active metFORMIN HCl 500mg Active Fish Oil 1000mg Not- Taking/PRN Atenolol 50mg Active Centrum Silver Activ e Suprep Bowel Prep 1 kit Solution as directed Orally as directed; Duration: 1 dose 01/24/2014 Active Social History Social History Additional Details Category Social Info Options Details Miscellaneous: Marital status: 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 alcohol Nonsmoker; occ. 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) Active confirmed Problem Colon cancer screening (770274397) Colon cancer screening (V76.51) Active confirmed Problem Gastroesophageal reflux disease (540880794) GERD (gastroesophag eal reflux disease) (530.81) Active confirmed Problem History of polyp of colon (situation) (199790760) History of colon polyps (V12.72) Active confirmed Problem History of polyp of colon (893728758) H/O adenomatous polyp of colon (V12.72) Active confirmed Plan Of Treatment Future Test Test Name Order Date COLONOSCOPY 01/24/2014 Insurance Providers Payer Name Payer Address Payer Phone Subscriber Number Group Number Insured Name Patient Relationship to Insured Coverage Start Date Coverage End Date [facility] [address] [address] [facility] [place] [phone] [id number] DAVID YANES Self - patient is the [...] sigmoid diverticulosis, and internal hemorrhoids GERD 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 Germain
== END 2025-02-10 11:54 | disposition home or self-care (01) ==
LOC: HO.HKA 11:11
PROVIDERS: PCP Physician Assistant; Visit Provider Internal Medicine Critical Care Medicine
DX: R80.9 Proteinuria, unspecified (principal); E11.21 Type 2 diabetes mellitus with diabetic nephropathy; N18.9 Chronic kidney disease, unspecified
CPT/HCPCS: 99204